=== PATIENT | female | born 1955 | race Caucasian/White ===

== ENCOUNTER 2018-11-21 16:35 | Emergency (ER) | payer OTHER ==
[~2018-11-21] VITALS: Ht 162.6 cm; Wt 59.0 kg
[~2018-11-21 16:35] MED LIST: DEPAKOTE500 MG PO; ENDOCET 10-3251 EACH PO; NORCO 7.5-3251 EACH PO; NORFLEX100 MG PO; PAMELOR50 MG PO
[2018-11-21] MEDS ORDERED: FLEXERIL PO (17:38)
[2018-11-21] MEDS ORDERED: HYDROCODON-ACE1 EA10 PO (17:38)
[2018-11-21] MEDS ORDERED: NEURONTIN600 MG PO (17:38)
[2018-11-21 17:52] VITALS: BP 112/67
== END 2018-11-21 17:53 | disposition home or self-care (01) ==
LOC: ER 16:35
DX: S09.8XXA Other specified injuries of head, initial encounter (principal); R07.89 Other chest pain; I25.10 Atherosclerotic heart disease of native coronary artery without angina pectoris; F31.9 Bipolar disorder, unspecified; M79.7 Fibromyalgia; E10.40 Type 1 diabetes mellitus with diabetic neuropathy, unspecified; W10.9XXA Fall (on) (from) unspecified stairs and steps, initial encounter; Y93.89 Activity, other specified; Y92.89 Other specified places as the place of occurrence of the external cause; Y99.8 Other external cause status

== ENCOUNTER 2018-11-26 15:00 | Emergency (ER) | payer OTHER ==
[~2018-11-26] VITALS: Ht 162.6 cm; Wt 63.5 kg
[~2018-11-26 15:00] MED LIST changes: +FLEXERIL PO; +HYDROCODON-ACE1 EA10 PO; +NEURONTIN600 MG PO
[2018-11-26] MEDS ORDERED: LIDOCAINE PAIN1 EACH TOP (16:37)
[2018-11-26] MEDS ORDERED: HYDROCODONE-AP1 EAC6 PO (16:37)
[2018-11-26 17:16] VITALS: BP 115/71
== END 2018-11-26 17:18 | disposition home or self-care (01) ==
LOC: ER 15:00
DX: S20.212A Contusion of left front wall of thorax, initial encounter (principal); E10.40 Type 1 diabetes mellitus with diabetic neuropathy, unspecified; I25.10 Atherosclerotic heart disease of native coronary artery without angina pectoris; F31.9 Bipolar disorder, unspecified; M79.7 Fibromyalgia; F17.210 Nicotine dependence, cigarettes, uncomplicated; Z88.8 Allergy status to other drugs, medicaments and biological substances; W10.8XXA Fall (on) (from) other stairs and steps, initial encounter; Y93.89 Activity, other specified; Y92.89 Other specified places as the place of occurrence of the external cause; Y99.8 Other external cause status

== ENCOUNTER 2019-02-03 13:33 | Emergency (ER) | payer OTHER ==
[~2019-02-03] VITALS: Ht 162.6 cm; Wt 61.2 kg
[~2019-02-03 13:33] MED LIST changes: +HYDROCODONE-AP1 EAC6 PO; +LIDOCAINE PAIN1 EACH TOP
[2019-02-03] MEDS ORDERED: NORCO 5-325 TA1 EACH PO (15:26)
[2019-02-03 15:49] VITALS: BP 114/54
== END 2019-02-03 15:45 | disposition home or self-care (01) ==
LOC: ER 13:33
DX: S62.512A Displaced fracture of proximal phalanx of left thumb, initial encounter for closed fracture (principal); S62.112A Displaced fracture of triquetrum [cuneiform] bone, left wrist, initial encounter for closed fracture; S09.8XXA Other specified injuries of head, initial encounter; M54.9 Dorsalgia, unspecified; F17.210 Nicotine dependence, cigarettes, uncomplicated; E10.40 Type 1 diabetes mellitus with diabetic neuropathy, unspecified; I25.10 Atherosclerotic heart disease of native coronary artery without angina pectoris; F31.9 Bipolar disorder, unspecified; W10.9XXA Fall (on) (from) unspecified stairs and steps, initial encounter; Y92.89 Other specified places as the place of occurrence of the external cause; Y93.89 Activity, other specified; Y99.8 Other external cause status

== ENCOUNTER 2019-02-12 13:32 | Emergency (ER) | payer OTHER ==
[~2019-02-12] VITALS: Ht 162.6 cm; Wt 61.2 kg
[~2019-02-12 13:32] MED LIST changes: +NORCO 5-325 TA1 EACH PO
[2019-02-12] MEDS ORDERED: PROZAC20 MG PO (13:57)
[2019-02-12] MEDS ORDERED: FLUOXETINE HCL40 MG PO (13:57)
[2019-02-12] MEDS ORDERED: CLONAZEPAM 0.50.5 M1 PO (13:57)
[2019-02-12] MEDS ORDERED: HUMALOG100 UNIT/1 SUBQ (13:58)
[2019-02-12] MEDS ORDERED: AMITRIPTYLINE H25 M2 PO (13:59)
[2019-02-12] MEDS ORDERED: LIPITOR40 MG PO (13:59)
[2019-02-12] MEDS ORDERED: PREDNISONE 20 M20 MG PO (14:17)
[2019-02-12] MEDS ORDERED: NAPROXEN375 MG PO (14:17)
[2019-02-12] MEDS ORDERED: ANTIVERT25 MG PO (14:22)
[2019-02-12 14:54] VITALS: BP 97/65
== END 2019-02-12 14:10 | disposition home or self-care (01) ==
LOC: ER 13:32
DX: M94.0 Chondrocostal junction syndrome [Tietze] (principal); G89.4 Chronic pain syndrome; R42 Dizziness and giddiness; E10.40 Type 1 diabetes mellitus with diabetic neuropathy, unspecified; I25.10 Atherosclerotic heart disease of native coronary artery without angina pectoris; M79.7 Fibromyalgia; M81.0 Age-related osteoporosis without current pathological fracture; F17.210 Nicotine dependence, cigarettes, uncomplicated

== ENCOUNTER 2019-03-21 16:05 | Emergency (ER) | payer OTHER ==
[~2019-03-21] VITALS: Ht 162.6 cm; Wt 63.5 kg
[~2019-03-21 16:05] MED LIST changes: +AMITRIPTYLINE H25 M2 PO; +ANTIVERT25 MG PO; +CLONAZEPAM 0.50.5 M1 PO; +FLUOXETINE HCL40 MG PO; +HUMALOG100 UNIT/1 SUBQ; +LIPITOR40 MG PO; +NAPROXEN375 MG PO; +PREDNISONE 20 M20 MG PO; +PROZAC20 MG PO
[2019-03-21 18:27] VITALS: BP 105/65
== END 2019-03-21 18:36 | disposition home or self-care (01) ==
LOC: ER 16:05
DX: R60.0 Localized edema (principal); Z47.89 Encounter for other orthopedic aftercare; F17.210 Nicotine dependence, cigarettes, uncomplicated; E10.40 Type 1 diabetes mellitus with diabetic neuropathy, unspecified; I25.10 Atherosclerotic heart disease of native coronary artery without angina pectoris; F31.9 Bipolar disorder, unspecified; M79.7 Fibromyalgia

== ENCOUNTER 2019-03-27 15:07 | Inpatient (IN) | payer OTHER ==
[~2019-03-27] VITALS: Ht 162.6 cm; Wt 62.6 kg
--- NOTE | ~2019-03-27 | HC ---
[facility] [place] [address] CONSULTATION Name: JONATHAN MCCULLOUGH Room #: 418-P [facility] IN ..#: [id number] Admission: 03/27/19 ������������������ Attend Phys: Cesar Cornejo MD Discharge: ������������������ Date of : 57 Report #: [id number] THIS REPORT FOR: //name// CC: Cesar Cornejo DATE OF SERVICE: 03/28/2019 HISTORY OF PRESENT ILLNESS: The patient is a 63-year-old white female who has had 3 falls since November. She had a fall in November sustaining left-sided rib fractures. She then had another fall sustaining a left thumb proximal phalanx fracture. I do not have the data on this, but she was seen in the Emergency Room on 03/21/2019 after having a thumb spica cast changed to a splint. She continues to have a splint in place at this time. She will use a cane at times, although not typically out in the community. She was out at a grocery store when she apparently had another fall. At this time, she fell on her right side and sustained 3 rib fractures on the right. She has premorbid COPD and has new onset hypoxia and is now O2 dependent on 4 liters. She has considerable pain with the rib fractures. She has multifactorial gait instability and we are seeing her in Rehabilitation Medicine consultation. PAST MEDICAL HISTORY: Includes peripheral neuropathy, diabetes mellitus type 1, coronary artery disease, bipolar disorder, fibromyalgia, depression, anxiety, chronic pain syndrome. MEDICATIONS: Please see the full medication listing. This includes vitamins, herbals, and supplements per report. HABITS: A 13-urxn-dzjg tobacco history and is a current smoker. SOCIAL HISTORY: Lives with parents. House, split level. Her mother continues to work. The patient needs to be able to go up and down stairs. REVIEW OF SYSTEMS: She has considerable right rib pain, especially with movement as expected. Some discomfort with her breathing. She still has the left thumb and wrist discomfort and has the splint in place. She has the chronic back pain and has some lower extremity tingling and pain, which is premorbid. No current abdominal discomfort per se. PHYSICAL EXAMINATION: GENERAL: A 63-year-old white female, somewhat anxious. VITAL SIGNS: Temperature 36.9, pulse 87, respirations 19, blood pressure 103/59. She is currently on nasal prong O2. HEENT: Facies appeared symmetric. NEUROLOGIC: She is a reasonable historian. She favors movement of that right side with right-sided rib fractures. I could not detect any focal weakness of the right upper extremity. Left upper extremity, she has the thumb spica splint [address] [address] CONSULTATION Name: JONATHAN MCCULLOUGH Dorene Room #: 418-P [facility] IN M.R.#: [id number] Admission: 03/27/19 ������������������ Attend Phys: Cesar Cornejo MD Discharge: ������������������ Date of : 56 Report #: [id number] She can wiggle her fingers. Proximal movement is somewhat limited as she relates back to her ribs. In her lower extremities, there is no focal calf swelling. She can move the left leg a little bit better than the right leg, but movement of that right leg will cause some pain in her ribs. Strength is probably at least a grade 3+/5, but it was again difficult to monogram technician. Tone appeared to be intact. ASSESSMENT: A 63-year-old white female with the following problem list: 1. Multifactorial gait instability with multiple falls. 2. Right-sided rib fractures with new-onset hypoxia. 3. Left thumb proximal phalanx fracture, which is in a thumb spica splint. 4. Recent fall in November sustaining left rib fractures. 5. Premorbid chronic obstructive pulmonary disease. 6. Peripheral neuropathy. 7. Diabetes mellitus. 8. Bipolar disorder. 9. Coronary artery disease. 10. Fibromyalgia. 11. Chronic pain syndrome. 12. Chronic low back pain. 13. Depression and anxiety. 14. Tobacco abuse. PLAN: PT and OT are to evaluate. I certainly agree with the attending, Dr. Cornejo that with the multiple falls pursuing inpatient rehabilitation would be prudent and appropriate. We will see how she does in therapies and insurance precertification issues to be checked in too. ��������������������������������������������� ���������������������������������������� By: ��������������������������������������������� [id number] Cesar Hartmann MD /[facility]
[2019-03-27 15:15] VITALS: BP 121/75
[2019-03-27 17:00] LABS: ABSOLUTE NEUTROPHILS 3.3 thou/uL (1.4-8.2); EOSINOPHILS 2.7 % (0.0-3.0); HEMATOCRIT 41.6 % (37.0-47.0); HEMOGLOBIN 13.9 gm/dL (12.0-15.0); LYMPHOCYTES 35.6 % (24.0-44.0); MCH 29.7 pg (26.0-34.0); MCHC 33.3 g/dL (28.0-37.0); MCV 89.2 fL (80.0-100.0); MONOCYTES 7.5 % (1.0-8.0); PLATELET COUNT 311 thou/uL (150-400); POLYS 53.2 % (36.0-66.0); RBC 4.66 mil/uL (4.20-5.00); RDW 13.8 % (10.5-14.5); WBC 6.2 thou/uL (4.0-11.0)
[2019-03-27 17:10] LABS: CALCIUM 10.1 mg/dL (8.5-10.1); POTASSIUM 5.1 mmol/L (3.5-5.1)
[2019-03-27] MEDS ORDERED: LANTUS100 UNIT/M (17:14)
[2019-03-27 17:17] LABS: ALBUMIN 3.5 g/dL (3.4-5.0); TOTAL BILIRUBIN 0.2 mg/dL (<0.1-1.0); TOTAL PROTEIN 7.2 g/dL (6.4-8.2)
--- NOTE | 2019-03-27 19:51 | NUR ---
DISCUSSION WITH PATIENT REGARDING PLAN OF CARE AND PAIN CONTROL. PATIENT STATES UNDERSTANDING
[2019-03-27 20:05] VITALS: BP 99/55
--- NOTE | 2019-03-27 20:25 | NUR ---
FIRST ATTEMPT AT REPORT UNSUCCESSFUL
--- NOTE | 2019-03-27 20:43 | NUR ---
INPATIENT TO REPORT ORAL ON 4EAST
[2019-03-27 20:45] VITALS: BP 96/49
[2019-03-28 03:26] VITALS: BP 137/86
[2019-03-28 07:14] VITALS: BP 103/59
--- NOTE | 2019-03-28 08:26 | NUR ---
PT ARRIVED TO UNIT APPROX 2100, ADMISSION AND ASSESSMENT COMPLETED, CONSENTS SIGNED BY PT. HOME MEDICATIONS COLLECTED FROM PT, COUNTED ALL CONTROLLED SUBSTANCES WITH SECOND RN IN FRONT OF THE PT, AND PLACED IN A SECURE PHARMACY BAG AND SENT TO PHARMACY FOR STORAGE. PT VALUABLES PLACED IN SECURITY ENVELOPE AND SENT TO [facility] PER PUBLIC SAFETY; EDUCATED PT ABOUT KEEPING ANY JEWELRY ON HER AND THAT IT WOULD BE SAFER IN THE VAULT, BUT SHE STILL ELECTED TO WEAR TWO RINGS, A WATCH, TWO BRACELTS, AND HER EARRINGS; A 3RD RING AND A NECKLACE WERE PLACED INTO A SECURITY POUCH. REVIEWED HOME MEDS WITH PT, WHO WAS UNSURE OF SOME HER DOSES AND DID NOT HAVE COPIES OF PRESCRIPTIONS WITH HER; SPOKE WITH DR. Christophe KELLY AND OBTAINED ORDERS TO RESUME MEDS, START IV FLUIDS, AND ACCUCHECKS. PT ON 2L NC O2 ON ARRIVAL, AM VS SHOWED O2 SAT HAD DROPPED TO 85% R/T SHALLOW/PAINFUL BREATHING, INCREASED O2 TO 4L AND SAT UP TO 94%. PT C/O SEVERE PAIN IN RIGHT RIBS, PARTLY CONTROLLED BY PRN PAIN MEDS. PT HAS EXISTING FRACTURE TO LEFT THUMB WITH WRIST AND THUMB WRAPPED IN SOFT CAST. NO OTHER CONCERNS, SHIFT REPORT GIVEN AT 0700.
--- NOTE | 2019-03-28 11:05 | NUR ---
PT GIVEN ANXIETY AND PRN PAIN MED. STATES RIBS HURT WANTED TO HAVE CAST PUT ON. EXPLAINED THAT THAT WOULD NOT BE DONE. PT GETTING RESP TX'S.
--- NOTE | 2019-03-28 13:19 | H ---
[facility] [place] [address] HISTORY AND PHYSICAL Name: JONATHAN MCCULLOUGH Room #: 418-P [facility] IN ..#: [id number] Admission: 03/27/19 ������������������ Attend Phys: Cesar Cornejo MD Discharge: ������������������ Date of : 57 Report #: [id number] THIS REPORT FOR: //name// CC: Cesar Cornejo DATE OF SERVICE: 03/27/2019 CHIEF COMPLAINT: Right rib pain. HISTORY OF PRESENT ILLNESS: The patient is a 63-year-old female who was admitted to the Emergency Room after a fall where she suffered right rib fractures. She was in a local grocery store when she was reaching to grab an item off a higher shelf when she was distracted by another desolderer and turned to her right. This caused her to lose her balance and she fell to the ground. She felt pain in her right ribs and was having trouble breathing and was weak all over. She was brought to the Emergency Room where x-ray and CT confirmed 3 rib fractures on the right. PAST MEDICAL HISTORY: Diabetes type 1, peripheral neuropathy, coronary artery disease, bipolar, seizures, fibromyalgia, depression, anxiety, chronic pain syndrome. PAST SURGICAL HISTORY: Unknown. FAMILY HISTORY: Noncontributory. SOCIAL HISTORY: She lives with her parents. Denies chronic alcohol use. Admits to a 24-fzfv-puoe history of smoking and is a current smoker. MEDICATIONS: Gabapentin, clonazepam as needed, fluoxetine, Humalog with meals, Lipitor, amitriptyline, hydrocodone, Lantus at night. REVIEW OF SYSTEMS: She complains of shortness of breath, pain in her right ribs, stinging type pain in the left leg. Otherwise, no headache, productive cough, nausea, vomiting, diarrhea, constipation or dysuria. OBJECTIVE: VITAL SIGNS: Temperature 36.9, pulse 87, respirations 19, blood pressure 103/59, O2 sat 90% on 2 liters. GENERAL: She is awake and alert, in no distress. HEAD AND NECK: Unremarkable. LUNGS: Diminished breath sounds. No wheezing. Equal bilaterally. HEART: Regular. ABDOMEN: Soft, normoactive bowel sounds. EXTREMITIES: No edema. NEUROLOGIC: Cranial nerves intact. Speech is fluent. She is alert and [facility] [address] [address] HISTORY AND PHYSICAL Name: JONATHAN MCCULLOUGH Room #: 418-P [facility] IN ..#: [id number] Admission: 03/27/19 ������������������ Attend Phys: Cesar Cornejo MD Discharge: ������������������ Date of : 56 Report #: [id number] oriented. She has decreased fine touch sensation in the feet. Global strength is about 3/5 throughout. IMAGING: CT of the chest revealed nondisplaced fractures of the seventh, eighth and ninth posterior lateral right ribs. There is no pneumothorax. ASSESSMENT: 1. Acute multiple right rib fractures 7, 8 and 9. 2. Neuropathy due to diabetes. 3. Diabetes type 1. 4. Gait disturbance. 5. Recurrent falls. 6. Fibromyalgia. 7. Chronic pain syndrome. 8. New onset hypoxia due to #1. 9. Chronic obstructive pulmonary disease with a history of tobacco use. PLAN: She was admitted due to new hypoxia related to the underlying rib injury. She required supplemental oxygen continuously so far. We will work on incentive spirometry, increase activity with therapies and wean off oxygen as tolerated. I do think we need to pursue inpatient rehabilitation with her. This is her third fall with fracture since November including left rib fractures and a left wrist fracture, for which she is still undergoing treatment, Lovenox for DVT prophylaxis. ��������������������������������������������� <ELECTRONICALLY SIGNED> ���������������������������������������� By: Cesar Cornejo MD ��������������������������������������������� 03/28/19 1319 [id number] Cesar Cornejo MD /nt
[2019-03-28 16:57] VITALS: BP 142/50
--- NOTE | 2019-03-28 20:22 | NUR ---
PT'S BLOOD SUGAR WAS 28 AT LUNCH. PT ALERT XS 4. GIVEN FOOD AND JUICE AND ICE CREAM BLOOD SUGAR UP TO [address] TERRY HERE AT FACILITY WAS INFORMED OF BLOOD SUGAR. DOCTOR MADE CHANGES TO MEDS AND INSULIN WANTS PATIENT UP IN BEDSIDE CHAIR AND THERAPY TO WORK WITH PATIENT.
[2019-03-28 21:29] VITALS: BP 136/77
--- NOTE | 2019-03-29 05:52 | NUR ---
ASSUMED CARE AT 1900, ASSESSMENT COMPLETED. EDUCATED PT ABOUT PAIN MEDICATIONS AND PAIN CONTROL, INCLUDING ALTERNATE METHODS SUCH DISTRACTION, HEAT, AND BREATHING EXERCISES. ENCOURAGED USE OF I.S. TO PREVENT PNEUMONIA. PT'S PAIN LEVEL HAS IMPROVED SLIGHTLY OVERNIGHT, ABLE TO GET IN/OUT OF BED MORE EASILY, AND NOT GET WINDED/ANXIOUS WITH ACTIVITY. PT HAS BEEN UP TO BSC MULTIPLE TIMES. DENIES NAUSEA. NO OTHER CONCERNS, WILL CONTINUE TO MONITOR.
[2019-03-29 07:32] VITALS: BP 120/61
--- NOTE | 2019-03-29 10:10 | NUR ---
INITIAL ASSESSMENT: Received consult for discharge planning. Pt with hx of frequent falls. Pt with new acute ride sided rib fractures. Consult for [facility] to evaluate pt for inpt acute rehab. FRANSICO met with pt at bedside. Introduced role of FRANSICO. Pt is alert/orientated x 4. Pt reports she lives at home with her parents. Prior to admission pt was independent with ADLs. Pt has a quad cane. No hx of HH services or SNF/Rehab placement. Pt is agreeable with going to inpt acute rehab if needed: [facility] or [facility]. SW offered [facility] as a back up plan if needed. Will need insurance authorization. Awaiting input from [facility] at this time. FRANSICO is following to assist as needed with discharge planning.
--- NOTE | 2019-03-29 15:14 | NUR ---
ASSUMED CARE AT 0700, SHIFT ASSESMENT DONE, MEDS GIVEN, VSS. REPORTED RIB PAIN, PRN PAIN MEDS GIVEN. REMAINS ON 4L NC. WORKED WITH PHTSICAL THERAPHY, WALKED OUT IN THE HALLWAY, UP WITH STANDBY. WILL CONITNUE TO ASSESS AND ASSIST WITH ADLs NEEDED.
[2019-03-29 15:58] VITALS: BP 100/59
--- NOTE | 2019-03-29 16:09 | NUR ---
funeral planner sent initial referral to [facility], asking if they can take patient's insurance. SW here already contacted [facility] to let them know to expect referral.
[2019-03-29 20:55] VITALS: BP 125/67
[2019-03-30 01:04] VITALS: BP 136/72
[2019-03-30 05:57] LABS: HEMOGLOBIN 12.7 gm/dL (12.0-15.0); MCH 29.4 pg (26.0-34.0); MCHC 32.6 g/dL (28.0-37.0); MCV 90.2 fL (80.0-100.0); RBC 4.33 mil/uL (4.20-5.00); RDW 14.1 % (10.5-14.5); WBC 10.1 thou/uL (4.0-11.0)
[2019-03-30 06:05] LABS: CALCIUM 9.9 mg/dL (8.5-10.1); CREATININE 0.8 mg/dL (0.6-1.0); POTASSIUM 4.2 mmol/L (3.5-5.1)
--- NOTE | 2019-03-30 06:16 | NUR ---
ASSUMED CARE AT 1900, ASSESSMENT COMPLETED. PT C/O RIGHT RIB PAIN, BETTER CONTROLLED OVERNIGHT USING OXYCODONE. PT HAS CRACKLES BILATERALLY IN LUNGS, ENCOURAGING USE OF I.S. AND DEEP BREATHING EXERCISES, MAINTAINING O2 SATS ABOVE 90% ON 4L O2. DENIES NAUSEA. GIVEN IV LASIX AT 1999, LARGE URINE OUTPUT, UNABLE TO ACCURATELY MEASURE D/T PT PLACING LARGE AMOUNTS OF TOILET PAPER IN BSC. NO OTHER CONCERNS, WILL CONTINUE TO MONITOR.
[2019-03-30 06:26] VITALS: BP 116/67
[2019-03-30 07:53] VITALS: BP 109/64
--- NOTE | 2019-03-30 08:26 | NUR ---
PATIENT SEEN BY DR. CASTILLO FOR ACUTE REHAB CONSULT. PATIENT MAY BE A CANDIDATE FOR ACUTE REHAB, BUT PATIENT HAS [facility] DUAL COMPL AND 5N IS NOT AN OPTION FOR THIS INSURANCE. MAT MAKING MACHINE TENDER INFORMED. THANK YOU FOR THIS REFERRAL.
[2019-03-30 15:48] VITALS: BP 93/51
--- NOTE | 2019-03-30 15:50 | NUR ---
FRANSICO reviewed chart and spoke with nursing and attending physician. Pt is progressing towards goals for discharge. Clinical updates faxed to [facility] for review. FRANSICO met with pt at bedside to notify of [facility]'s acceptance pending insurance authorization. Discharge anticipated for Tuesday pending insurance auth. Pt verbalized understanding and is in agreement with plan. [facility] liaison will be onsite over the weekend to meet with pt and family. Choice of Vendor Form signed and placed on pt's chart. No weekend discharge planned. FRANSICO is following to assist as needed with discharge planning.
--- NOTE | 2019-03-30 18:45 | NUR ---
PT ASSESSED AT START OF SHIFT. C/O RT RIB PAIN AND MEDICATED REGULARLY WITH SOME RELIEF. PT COUGHING BETTER. DOING I/S AND FLUTTER VALVE. STILL ON O2 AT 5LNC. DIURESED W/ IV LASIX THIS AFTERNOON. EATING AND DRINKING WELL. LT ARM SPLINT IN PLACE. GOING TO [facility] ON DISCHARGE.
[2019-03-30 19:23] VITALS: BP 111/65
[2019-03-31 05:05] VITALS: BP 107/57
--- NOTE | 2019-03-31 06:24 | NUR ---
PATIENT ALERT AND ORIENTED X4. C/O PAIN IN RIBS AND IN BACK. ACCUCHECK WAS 324. DOES I/S. UP TO BATH ROOM. SLEPT OFF AND ON DURING NIGHT.
[2019-03-31 07:54] VITALS: BP 95/59
[2019-03-31 17:17] VITALS: BP 99/55
[2019-03-31 20:12] VITALS: BP 98/51
--- NOTE | 2019-04-01 05:35 | NUR ---
PATIENT ALERT AND ORIENTED X4. UP TO BATHROOM WITH SBA. C/O PAIN, MED GIVEN. ACCUCHECK WAS 97. SLEPT LITTLE THIS SHIFT.
[2019-04-01 05:46] VITALS: BP 113/61
[2019-04-01 07:45] VITALS: BP 119/66
[2019-04-01 19:22] VITALS: BP 99/52
[2019-04-02 03:30] VITALS: BP 112/58
--- NOTE | 2019-04-02 04:07 | NUR ---
ASSUMED CARE OF PT @1900 ASSESSED PT @ START OF SHIFT. PT A&OX4 WITH C/O RIGHT RIB PAIN. PO PAIN MEDS GIVEN FOR MANAGEMENT. ABX INFUSED AND EVENING MEDS GIVEN. PT TOOK EVENING BATH. POC DONE AND WILL CONTINUE TO MONITOR TILL EOS
[2019-04-02 07:55] VITALS: BP 112/78
--- NOTE | 2019-04-02 12:02 | NUR ---
PT UP WALKING THE HALLS WITH THERAPY NO PAIN OR RESP DISTRESS. GIVEN PRN COUGH MED AND PRN PAIN MED EARLIER.
--- NOTE | 2019-04-02 12:33 | NUR ---
SW reviewed chart and spoke with nursing and attending physician. Pt is progressing towards goals for discharge. mission planner to fax updated clinical and therapy notes for review to [facility]. Awaiting insurance authorization at this time. FRANSICO is following to assist as needed with discharge planning.
[2019-04-02] MEDS ORDERED: IPRAT-ALBUT 0.5-3 ML INH (13:04)
[2019-04-02] MEDS ORDERED: NICOTINE TRANSD14 M1 TRANSDERM (13:05)
[2019-04-02] MEDS ORDERED: ENOXAPARIN40 MG/0.1 SUBQ (13:05)
[2019-04-02] MEDS ORDERED: PERCOCET PO (13:05)
[2019-04-02] MEDS ORDERED: BENZONATATE100 MG PO (13:06)
[2019-04-02] MEDS ORDERED: NEURONTIN600 MG PO (13:06)
[2019-04-02] MEDS ORDERED: LANTUS100 UNIT/M SUBQ (13:06)
[2019-04-02] MEDS ORDERED: CEFDINIR300 MG PO (13:07)
[2019-04-02] MEDS ORDERED: NOVOLOG100 UNIT/1 SUBQ (13:07)
[2019-04-02 16:23] VITALS: BP 105/55
--- NOTE | 2019-04-02 19:24 | NUR ---
PT UP IN BEDSIDE CHAIR WATCHING TV. WAS GIVEN PRN MIRALAX EARLIER NO RESULTS OF THIS TIME. PRN COUGH MED AND PRN PAIN MED GIVEN EARLIER. PT SBA ASSIST. STEADY GAIT.
[2019-04-02 19:25] VITALS: BP 138/108
[2019-04-03 04:55] VITALS: BP 114/69
--- NOTE | 2019-04-03 05:18 | NUR ---
A/O, calm and cooperative. vss, afebrile. complain chest pain with cough, asks for PRN pain medication on time, will pass it on to the day nurse.
[2019-04-03 07:15] VITALS: BP 127/74
--- NOTE | 2019-04-03 08:36 | NUR ---
ADM OXYCODONE 5MG 2 TABS FOR PAIN TO LUNGS. PT ALSO STATED NO BM FOR 7 DAYS. ADM MIRALAX 17GM IN APPLE JUICE. PT ALSO RECIEVED TESSELONE PEARLS 200MG FOR COUGH.
[2019-04-03] MEDS ORDERED: PERCOCET 10-321 EACH PO (09:26)
[2019-04-03] MEDS ORDERED: NOVOLOG100 UNIT/1 SUBQ (09:27)
--- NOTE | 2019-04-03 10:44 | NUR ---
FRANSICO reviewed chart. Pt is medically stable for discharge to post-acute care. FRANSICO notified that [facility] is able to accept pt and has submitted for insurance authorization. FRANSICO spoke with Paola in admissions at [facility], who states they are able to accept pt and have submitted for insurance authorization. FRANSICO received call from HIRAL Zhu with [facility], requesting update with pt's discharge plan. FRANSICO returned call to Audra ([phone]) to provide update and notify that [facility] can accept pt from a clinical standpoint. Per Audra, [facility] was provided with authorization this morning around 1045. FRANSICO updated attending physician. Chart copy ordered. FRANSICO is following to finalize discharge.
--- NOTE | 2019-04-03 12:44 | NUR ---
ADM OXYCODONE 5MG 2 TABS PO FOR PAIN AFTER COUGHING, AND ADM TESSELON PEARLS 200MG PO.
--- NOTE | 2019-04-03 15:27 | NUR ---
PT LEFT VIA W/C VAN TO CT. GAVE REPORT TO PENG BLACKMAN AT [facility]. PT ABLE TO TRANSFER FROM BED TO W/C. PT VERBALY UNDERSTOOD D/C ORDERS. PT LEFT WITH OXYGEN ON 4L NC.
== END 2019-04-03 15:27 | DRG 183 ==
LOC: ER 15:07 → EROBS 16:59 → 4E 16:59
PROVIDERS: Emergency Medicine; ADMIT Internal Medicine Geriatric Medicine
DX: S22.41XA Multiple fractures of ribs, right side, initial encounter for closed fracture (principal); J18.9 Pneumonia, unspecified organism; J44.0 Chronic obstructive pulmonary disease with (acute) lower respiratory infection; I25.10 Atherosclerotic heart disease of native coronary artery without angina pectoris; F31.9 Bipolar disorder, unspecified; M79.7 Fibromyalgia; F17.210 Nicotine dependence, cigarettes, uncomplicated; E10.42 Type 1 diabetes mellitus with diabetic polyneuropathy; F41.9 Anxiety disorder, unspecified; W18.39XA Other fall on same level, initial encounter; R09.02 Hypoxemia; G89.4 Chronic pain syndrome; Z79.899 Other long term (current) drug therapy; Z79.4 Long term (current) use of insulin; Y93.89 Activity, other specified; Y92.89 Other specified places as the place of occurrence of the external cause; Y99.8 Other external cause status
CPT/HCPCS: 10084

== ENCOUNTER → 2019-09-27 | Outpatient (CLI) | payer OTHER ==
[~2019-09-27] MED LIST changes: +BENZONATATE100 MG PO; +CEFDINIR300 MG PO; +ENOXAPARIN40 MG/0.1 SUBQ; +IPRAT-ALBUT 0.5-3 ML INH; +LANTUS100 UNIT/M; +LANTUS100 UNIT/M SUBQ; +NICOTINE TRANSD14 M1 TRANSDERM; +NOVOLOG100 UNIT/1 SUBQ; +PERCOCET 10-321 EACH PO; +PERCOCET PO
== END ==
LOC: RAD 12:29 → NUC 12:29
DX: Z12.31 Encounter for screening mammogram for malignant neoplasm of breast (principal); M81.0 Age-related osteoporosis without current pathological fracture

== ENCOUNTER 2019-10-08 00:12 | Emergency (ER) | payer OTHER ==
[~2019-10-08] VITALS: Ht 157.5 cm; Wt 54.4 kg
[2019-10-08] MEDS ORDERED: NAPROXEN375 MG PO (01:39)
[2019-10-08] MEDS ORDERED: TYLENOL WITH CO1 TA1 PO (01:39)
[2019-10-08 03:01] VITALS: BP 145/54
== END 2019-10-08 03:01 | disposition home or self-care (01) ==
LOC: ER 00:12
DX: S42.291A Other displaced fracture of upper end of right humerus, initial encounter for closed fracture (principal); F10.129 Alcohol abuse with intoxication, unspecified; I25.10 Atherosclerotic heart disease of native coronary artery without angina pectoris; E10.40 Type 1 diabetes mellitus with diabetic neuropathy, unspecified; M79.7 Fibromyalgia; F31.9 Bipolar disorder, unspecified; F17.210 Nicotine dependence, cigarettes, uncomplicated; Z90.710 Acquired absence of both cervix and uterus; Z91.81 History of falling; W18.39XA Other fall on same level, initial encounter; Y93.89 Activity, other specified; Y92.89 Other specified places as the place of occurrence of the external cause; Y99.8 Other external cause status; Y90.9 Presence of alcohol in blood, level not specified

== ENCOUNTER 2019-10-09 18:06 | Emergency (ER) | payer OTHER ==
[~2019-10-09] VITALS: Ht 157.5 cm; Wt 54.4 kg
[~2019-10-09 18:06] MED LIST changes: +TYLENOL WITH CO1 TA1 PO
[2019-10-09 19:17] VITALS: BP 118/67
== END 2019-10-09 19:18 | disposition home or self-care (01) ==
LOC: ER 18:06
DX: S42.201D Unspecified fracture of upper end of right humerus, subsequent encounter for fracture with routine healing (principal); S50.01XD Contusion of right elbow, subsequent encounter; F31.9 Bipolar disorder, unspecified; M79.7 Fibromyalgia; E10.40 Type 1 diabetes mellitus with diabetic neuropathy, unspecified; Z90.710 Acquired absence of both cervix and uterus; X58.XXXD Exposure to other specified factors, subsequent encounter

== ENCOUNTER 2019-10-12 21:20 | Inpatient (IN) | payer OTHER ==
[~2019-10-12] VITALS: Ht 157.5 cm; Wt 50.0 kg
[2019-10-12 21:21] VITALS: BP 150/75
[2019-10-12 22:03] LABS: ABSOLUTE NEUTROPHILS 7.2 thou/uL (1.4-8.2); EOSINOPHILS 0.3 % (0.0-3.0); HEMATOCRIT 36.7 % (37.0-47.0); HEMOGLOBIN 11.9 gm/dL (12.0-15.0); LYMPHOCYTES 13.7 % (24.0-44.0); MCH 30.1 pg (26.0-34.0); MCHC 32.4 g/dL (28.0-37.0); MCV 92.9 fL (80.0-100.0); MONOCYTES 6.8 % (1.0-8.0); PLATELET COUNT 383 thou/uL (150-400); POLYS 78.2 % (36.0-66.0); RBC 3.95 mil/uL (4.20-5.00); RDW 14.1 % (10.5-14.5); WBC 9.1 thou/uL (4.0-11.0)
[2019-10-12 22:06] LABS: CALCIUM 9.7 mg/dL (8.5-10.1); CREATININE 0.5 mg/dL (0.6-1.0); MAGNESIUM 1.9 mg/dL (1.8-2.4)
[2019-10-12 22:59] LABS: BE(vivo) -11.7 mmol/L (-2 to +3); HCO3 13.2 mmol/L (22.0-26.0); PCO2 27.6 mmHg (35.0-45.0); PO2 73.4 mmHg (80.0-100.0); sO2 93.6 % (92.0-98.0)
[2019-10-12 22:59] LABS: URINE BILIRUBIN NEGATIVE (Negative); URINE BLOOD TRACE (Negative); URINE CLARITY CLEAR; URINE COLOR YELLOW; URINE GLUCOSE-RANDOM* 2+ (Negative); URINE KETONES 3+ (Negative); URINE LEUKOCYTES-REFLEX NEGATIVE (Negative); URINE NITRITE-REFLEX NEGATIVE (Negative); URINE PROTEIN (DIPSTICK) NEGATIVE (Negative); URINE SPECIFIC GRAVITY >= 1.030 (1.005-1.035); URINE UROBILINOGEN 0.2 E.U./dl (0.2-1.0)
[2019-10-12 23:00] LABS: pH 7.297 (7.360-7.450)
[2019-10-12 23:24] LABS: CALCIUM 9.4 mg/dL (8.5-10.1); CREATININE 0.8 mg/dL (0.6-1.0)
[2019-10-12 23:28] LABS: ALBUMIN 3.4 g/dL (3.4-5.0); MAGNESIUM 1.8 mg/dL (1.8-2.4); PHOSPHORUS 2.2 mg/dL (2.5-4.9)
[2019-10-12 23:30] LABS: POTASSIUM 4.4 mmol/L (3.5-5.1)
[2019-10-12 23:48] VITALS: BP 133/58
[2019-10-13] VITALS (36 sets, daily range): BP systolic 94–129; BP diastolic 50–64
--- NOTE | 2019-10-13 01:42 | NUR ---
PT ARRIVED TO ICU AT 2335 ACCOMPANIED BY ISIDRO RN. PT ALERT AND ORIENTED X4. PT DOES VERBALIZE PAIN ON RIGHT UPPER EXTREMETY R/T A PREVIOUS FALL. DKA PROTOCOL ORDERS IN PLACE. PER ED PHYSICIAN NOTE DR TERRY WAS NOTIFIED. PT HEMODYNAMICALLY STABLE. PT STARTED ON INSULIN GTT WHILE IN ICU AND TITRATING PER ORDERS. MEDICATION IN PATIENT'S PURSE SENT TO PHARMACY. WILL CONTINUE TO MONITOR.
[2019-10-13 06:24] LABS: ALBUMIN 2.6 g/dL (3.4-5.0); CALCIUM 8.6 mg/dL (8.5-10.1); CREATININE 0.7 mg/dL (0.6-1.0); MAGNESIUM 1.7 mg/dL (1.8-2.4); POTASSIUM 3.9 mmol/L (3.5-5.1); TOTAL BILIRUBIN 0.4 mg/dL (<0.1-1.0)
[2019-10-13 10:25] LABS: ALBUMIN 2.8 g/dL (3.4-5.0); CREATININE 0.7 mg/dL (0.6-1.0); POTASSIUM 3.9 mmol/L (3.5-5.1); TOTAL BILIRUBIN 0.4 mg/dL (<0.1-1.0); TOTAL PROTEIN 6.2 g/dL (6.4-8.2)
[2019-10-13 14:30] LABS: ALBUMIN 2.6 g/dL (3.4-5.0); CALCIUM 8.6 mg/dL (8.5-10.1); CREATININE 0.7 mg/dL (0.6-1.0); MAGNESIUM 1.7 mg/dL (1.8-2.4); PHOSPHORUS 1.2 mg/dL (2.5-4.9)
[2019-10-13 17:40] LABS: CALCIUM 8.9 mg/dL (8.5-10.1); CREATININE 0.6 mg/dL (0.6-1.0); POTASSIUM 3.6 mmol/L (3.5-5.1)
--- NOTE | 2019-10-13 19:21 | NUR ---
PT ASSESSMENTS DOCUMENTED. REMAINED ON ISULIN GTT AND FLUIDS PER DKA PROTOCOL THIS MORNING AND AFTERNOON. ANION GAP CLOSED. UPDATED DR. TERRY THIS EVENING. ORDERS TO STOP INSULIN GTT AND FLUIDS. START ON MOD DOSE SS INSULIN AND LANTUS AT HS. PRN PAIN MEDICATION GIVEN PER NOV. DIFFICULTY MANAGING PAIN. DR. TERRY AWARE. INCREASED DOSE OF PAIN MEDICATION. PT PROGRESSING.
[2019-10-13 22:54] LABS: CALCIUM 9.4 mg/dL (8.5-10.1); CREATININE 0.5 mg/dL (0.6-1.0); POTASSIUM 4.5 mmol/L (3.5-5.1)
[2019-10-13 22:58] LABS: ALBUMIN 2.7 g/dL (3.4-5.0); PHOSPHORUS 1.5 mg/dL (2.5-4.9)
[2019-10-14] VITALS (9 sets, daily range): BP systolic 111–131; BP diastolic 57–73
--- NOTE | 2019-10-14 04:40 | NUR ---
TOOK OVER CARE OF PATIENT AT 0100 FROM HIRAL BUCIO. ASSESSMENT CHARTED, MEDS GIVEN CHARTED. PATIENT WEARING IMMOBILIZER TO RIGHT UPPER EXTEMITY. C/O PAIN UNCONTROLLED BY CURRENT LEVEL OF PAIN THERAPY. COLD THERAPY ALSO IN USE ON AND OFF DURING SHIFT. PATIENT UP WITH STANDBY ASSIST TO COMMODE. LUNGS CLR/DIM ON 2 LITERS NASAL CANNULA. PATIENT ACHS ON MODERATE SSI. VSS. FALL PRECAUTIONS IN PLACE. PLAN OF CARE IS TO CONTINUE PAIN MANAGEMENT, INSULIN THERAPY, AND INVESTIGATE FX RIGHT HUMERUS NOW THAT PATIENT IS STABLE.
[2019-10-14 06:14] LABS: BASOPHILS 0.9 % (0.0-2.0); EOSINOPHILS 2.6 % (0.0-3.0); HEMATOCRIT 34.7 % (37.0-47.0); HEMOGLOBIN 11.4 gm/dL (12.0-15.0); LYMPHOCYTES 34.9 % (24.0-44.0); MCH 30.2 pg (26.0-34.0); MCHC 32.8 g/dL (28.0-37.0); MCV 91.9 fL (80.0-100.0); MONOCYTES 9.8 % (1.0-8.0); PLATELET COUNT 389 thou/uL (150-400); POLYS 51.8 % (36.0-66.0); RBC 3.77 mil/uL (4.20-5.00); RDW 14.2 % (10.5-14.5); WBC 7.8 thou/uL (4.0-11.0)
[2019-10-14 06:25] LABS: CALCIUM 9.1 mg/dL (8.5-10.1); CREATININE 0.4 mg/dL (0.6-1.0); POTASSIUM 3.8 mmol/L (3.5-5.1)
[2019-10-14 06:30] LABS: ALBUMIN 2.5 g/dL (3.4-5.0); TOTAL BILIRUBIN 0.4 mg/dL (<0.1-1.0); TOTAL PROTEIN 5.9 g/dL (6.4-8.2)
--- NOTE | 2019-10-14 10:08 | H ---
[facility] [place] [address] HISTORY AND PHYSICAL Name: JONATHAN MCCULLOUGH Room #: 238-P [facility] IN M.R.#: [id number] Admission: 10/12/19 Attend Phys: Cesar Cornejo MD Discharge: Date of : 57 Report #: [id number] THIS REPORT FOR: //name// CC: Cesar Cornejo DATE OF SERVICE: 10/13/2019 CHIEF COMPLAINT: Nausea and vomiting. HISTORY OF PRESENT ILLNESS: The patient is a 63-year-old female who came to the Emergency Room with complaints of nausea and vomiting. Over the last 2-3 days, she has been out of her insulin and has not been taking it regularly. She had a fall last weekend and suffered a right proximal humerus fracture. She has had difficulty managing at home and we have ordered home health; however, she has not been taking her insulin. In the last day or two, she developed a subjective fever and nausea and vomiting. She presented to the Emergency Room last night and was admitted with a diagnosis of DKA. PAST MEDICAL HISTORY: Diabetes type 1, neuropathy, coronary artery disease, bipolar disorder, pseudoseizures, fibromyalgia. She has had rib fractures, left wrist fracture, osteoporosis and the recent right humerus fracture and COPD. PAST SURGICAL HISTORY: She has had a hysterectomy. FAMILY HISTORY: Noncontributory. SOCIAL HISTORY: She lives with her parents. Positive tobacco and alcohol use, 77-[id number]-[id number]. ALLERGIES: None. MEDICATIONS: Elavil, Lipitor, Prozac, fluoxetine, Lantus at night, NovoLog with meals. REVIEW OF SYSTEMS: She complains of right arm pain, otherwise no headache, chest pain, shortness of breath. Nausea and vomiting has resolved. No abdominal pain. OBJECTIVE: VITAL SIGNS: Temperature 36.7, pulse 88, respirations 21, blood pressure 124/60, O2 sat 94% on room air. GENERAL: She is awake and alert, in no distress. HEAD AND NECK: Unremarkable. LUNGS: Clear. HEART: Regular. ABDOMEN: Soft, normoactive bowel sounds. [facility] [address] [place] [address] HISTORY AND PHYSICAL Name: JONATHAN MCCULLOUGH Room #: [address] [place] [address] [place] .R.#: [id number] Admission: 10/12/19 Attend Phys: Cesar Cornejo MD Discharge: Date of : 57 Report #: [id number] EXTREMITIES: No edema. The right arm is in a shoulder immobilizer. NEUROLOGIC: She is oriented to place and situation. She recognizes me. LABORATORY DATA: Chemistry reveals carbon dioxide of 18, anion gap is down to 13, magnesium 1.7. Glucose levels were reviewed and lab reviewed from the ER in the electronic record. ASSESSMENT: 1. Diabetic ketoacidosis. 2. Diabetes type 1, noncompliant with insulin. 3. Recent right humerus fracture, proximal. 4. Chronic obstructive pulmonary disease. 5. Diabetic neuropathy. 6. Tobaccoism. 7. History of alcohol use. 8. History of bipolar. 9. History of pseudoseizures. PLAN: She will continue in ICU on DKA protocol. She is much improved overnight and will advance her diet and likely begin her usual doses of insulin later today. Other home medications to continue, a small dose of hydrocodone for the fracture pain. Once stabilized, we will have Ortho assess her arm, but I believe we will be treating this with an immobilizer. access services assistant will be involved and we may need placement in a skilled facility until her fractures healed. <ELECTRONICALLY SIGNED> By: Cesar Cornejo MD 10/14/19 1008 [id number] Cesar Cornejo MD /nt
--- NOTE | 2019-10-14 10:31 | NUR ---
ASSUMED CARE AT 700, PATIENT REMAINS A&O X 4, PLEASANT AND COOPERATIVE WITH CARES. C/O PAIN TO RUE, PAIN MEDICATION DOES NOT REALLY HELP. SPOKE WITH DR TERRY, NEW RECEIVED FOR PAIN MEDICATION. PATIENT UP TO BATHROOM X 1 ASSIST. NO BOWEL MOVEMENT THIS AM. GOOD URINE OUTPUT. TRANSFER ORDER RECEIVED. ROOM NUMBER ASSIGNED. PATIENT WILL TRANSFER TO ROOM 441. NO FURTHER CONCERNS AT THIS TIME. WILL CONTINUE TO MONITOR AND CARE PER PLAN OF CARE.
--- NOTE | 2019-10-14 14:58 | NUR ---
ASSUMED CARE OF THE PT AT 1300. PTS PAIN CONTROLLED BY PAIN MEDS, SEE EMAR. PT ON RA. FALL PRECAUTIONS IN PLACE. PTS IS BS. R ARM ON IMMOBILIZER. L AC, LFOREARM IV, SALINE LOCKED. BED IN LOWEST POSITION, CALL LIGHT IS WITHIN REACH. WILL CONTINUE TO MONITOR THE PT.
--- NOTE | 2019-10-15 03:38 | NUR ---
VSS-AFEBRILE. LUNGS CLEAR-ROOM AIR. C/O RIGHT ARM APIN RELATED TO FRACTURE, PAIN IS PARTIALLY RELIEVED WITH PRESCRIBED PO PAIN MEDICATION. OOB TO CHAIR WITH SBA FOR BATH, AND TOTAL LINEN BED CHANGE. TOLERATED WELL. CALLS APPROPRIATELY WHEN NEEDING ASSISTANCE TO RESTROOM. RIGHT ARM IMMOBILIZER KEPT IN PLACE THROUGH SHIFT. LEFT AC IV REMOVED DUE TO NO LONGER BEING PATENT. FALL PRECAUTIONS IN PLACE,
[2019-10-15 04:26] VITALS: BP 126/66
[2019-10-15 08:12] VITALS: BP 105/70
[2019-10-15 09:19] LABS: CALCIUM 9.3 mg/dL (8.5-10.1); CREATININE 0.7 mg/dL (0.6-1.0); POTASSIUM 3.5 mmol/L (3.5-5.1)
--- NOTE | 2019-10-15 13:29 | NUR ---
Assess due to high nutrition screening score for unintentional wt loss and decreased appetite. Pt admitted with DKA-had run out of insulin, admitted with n/v and recent fall with humerous fx. Hx DM, and bipolar. typically eats well and appetite has improved over admit. Wt down about 25 lb over 8 mo=18% significant and may be partially related to hyperglycemia as BG have been 200-400's. Will continue to follow trends, BG have improved. Note may discharge to SNF soon. Low nutrition risk
--- NOTE | 2019-10-15 16:15 | NUR ---
ASSUMED CARE OF THE PT AT 0700. PT C/O PAIN AND RECEIVED PAIN MEDS SCHEDULED Q4H. PT HAD C/O BEING IGNORED BY CALL LIGHT AND NOT RECEIVING PAIN MEDS ON ADMISSION DAY, EXPLAINED THE REASON FOR THE DELAY, PT UNDERSTOOD AND APOLOGIZED. R ARM IN IMMOBILIZER. CONSULT CALLED FOR ORTHO. FALL PRECAUTIONS IN PLACE, CALL LIGHT IS WITHIN REACH AND CHAIR ALARM ON. PT IS TRANSFERRING TO 4N, WILL GIVE REPORT TO NURSE.
--- NOTE | 2019-10-15 16:38 | NUR ---
PT ADMITTED RELATED TO DKA; RECENT HUMERUS FX. CM REVIEWED CHART AND SPOKE WITH CARE TEAM. CM MET WITH PT AT BEDSIDE THIS DAY. PT IS A&O X4. MO INIDICATED SHE LIVES IN A HOUSE WITH HER PARENTS WITH 11 STEPS TO ENTER AND 7 STEPS INSIDE. 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 PT HAD BEEN TO [facility] IN THE PAST AND SHE INDICATED THAT SHE IS RECEPTIVE TO GOING THERE AGAIN UPON DC. REFERRAL SENT TO [facility]. CM TO FOLLOW INDICATED WITH DC PLANNING.
--- NOTE | 2019-10-15 16:51 | NUR ---
FAXED REFERRAL TO [facility] RECEIVED CONFIRMATION AND LEFT MSG WITH DIONIC[facility] IN ADM THAT PHYSICAL THERAPY STILL NEEDS TO SEE PT WILL FAX NOTES ONCE AVAILABLE. WILL F/U WITH DIONICIO IN THE MORNING.
--- NOTE | 2019-10-15 17:51 | NUR ---
PT ARRIVED ON UNIT FROM 4S VIA WHEELCHAIR. PT AOX4, VSS, REPORTS PAIN IN RIGHT HUMERUS IS 9/10. ICE PACK ON ARM ALONG WITH AN ICE PACK TO PAIN. PT RECEIVED ORAL PAIN ANALGESIC FROM PREVIOUS NURSE BEFORE COMING TO UNIT. PT TOLERATING DIET, BS 243 INSULIN RECEIVED PER S/S. PT IV IN LEFT FOREARE SL. PT AMBULATES WITH STEADY GAIT TO BATHROOM. NURSE EDUCATED PROJECT BUYER LIGHT. WILL CONTINUE TO MONITOR.
[2019-10-15 18:20] VITALS: BP 121/65
[2019-10-15 19:38] VITALS: BP 126/73
--- NOTE | 2019-10-16 03:39 | NUR ---
ASSUMED CARE OF PATIENT AT APPROX 1999. ASSESSMENT CHARTED. MEDICATIONS GIVEN PER NOV. PATIENT IS A&OX4. PATIENT C/O PAIN AT SHIFT CHANGE. PRN PAIN MEDICATION ADMINISTERED PER NOV. UPON REASSESSMENT PAIN RELIEF WAS POOR; PATIENT STATED ONLY WENT FROM 9 TO 7/10. PATIENT REQUESTS Q4HR PRN PAIN MED EVERY 4HRS AND CONTINUES TO EXPERIENCE LITTLE RELIEF. PATIENT STATES SHE FEELS "POPPING" AT HER R HUMERUS. R ARM IS SIGNIFICANTLY SWOLLEN, BRUISED AND HOT TO TOUCH. SLING WAS SLIGHTLY LOOSENED AT WRIST AND PATIENT EXPRESSED RELIEF. PATIENT IS DRINKING HER WATER AND URINATING WNL. NO PROBLEMS BREATHING NOTED THIS SHIFT. GAIT WHEN AMBULATING IS STRONG AND STEADY. CM MET W PATIENT AND PLAN IS TO D/C TO [facility] ONCE PT WORKS WITH HER. PATIENT VOICES NO OTHER NEEDS AT THIS TIME. FALL PRECAUTIONS IN PLACE. WILL CONTINUE TO MONITOR AND FOLLOW PLAN OF CARE.
[2019-10-16 07:59] VITALS: BP 119/77
--- NOTE | 2019-10-16 09:05 | NUR ---
FRANSICO reviewed chart and spoke with nursing. Pt was [facility] to [facility] from and is progressing towards goals for discharge. FRANSICO faxed updated progress notes and therapy evals to [facility] for review. Requested to submit for insurance authorization. FRANSICO is following to assist as needed with discharge planning.
[2019-10-16] MEDS ORDERED: IPRAT-ALBUT 0.5-3 ML INH (13:00)
[2019-10-16] MEDS ORDERED: NICOTINE TRANSD14 M1 TRANSDERM (13:00)
[2019-10-16] MEDS ORDERED: LANTUS100 UNIT/M SUBQ (13:02)
[2019-10-16] MEDS ORDERED: CALTRATE-600 W1 EACH PO (13:02)
[2019-10-16] MEDS ORDERED: HUMALOG100 UNIT/1 SUBQ (13:02)
[2019-10-16] MEDS ORDERED: PERCOCET 7.5-31 EAC1 PO (13:03)
[2019-10-16] MEDS ORDERED: FOSAMAX 70 MG T70 MG PO (13:08)
--- NOTE | 2019-10-16 18:47 | NUR ---
ASSUMED PATIENT CARE AT 0700. PATIENT IS A&OX4. PATIENT IS UP WITH STANDBY ASSIST AND DOES WELL AMBULATING. PATIENT IS NOT ABLE TO GET PAIN UNDER CONTROL. DR. JORGE NOTIFIED AND ADDITIONAL MUSCLE RELAXER WAS ADDED TO MEDICATIONS. PATIENT HAS HER RUE IMMOBLIZER IN PLACE. PT/OT BOTH WORKED WITH THE PATIENT TODAY. PATIENT IS PENDING D/C TO [place]. PATIENT DURING LUNCH TIME C/O FEELING BAD, BLOOD SUGARS WERE LOW AND NURSE PROVIDED ORANGE JUICE AND YOUGURT, ONCE THE PATIENT ATE AND DRANK THAT SHE WAS FEELING MUCH BETTER AND BLOOD SUGAR WAS BACK UP. PATIENT IS REQUESTING SOMETHING ELSE TO HELP HER HAVE A BM. FALL PRECAUTIONS IN PLACE, CALL LIGHT WITHIN REACH.
--- NOTE | 2019-10-16 19:55 | NUR ---
I AGREE WITH NURSING ASSESSMENT AND NURSING NOTE DONE BY MARK ANTHONY/LAMONTE.
--- NOTE | 2019-10-17 05:30 | NUR ---
Assumed pt care at 1900. A/OX4, VSS. Pt c/o pain to right humerus medicated per EMAR with some relief reported. Right arm with a immobilizer, CMS intact w/edema noted on arm.Pt is up with SBA to bathroom hasn't had a BM 2/5 declined need to call MD for stool softners and wait until dc explained importance of having BM's regularly verbalized understanding but still refused;prune juice as well. Fall precautions in place calling approp.
--- NOTE | 2019-10-17 09:13 | NUR ---
DISCHARGE NOTE: FRANSICO faxed updated clinical and therapy notes to [facility] this morning. FRANSICO received call from Paola at [facility], who states they received insurance authorization and they can admit pt today. Wheelchair van transportation scheduled for 1100 per facility's arrangements. FRANSICO met with pt at bedside to provide update and discuss discharge. Pt is agreeable with plan. Pt states she will notify her mother of discharge. FRANSICO updated attending physician. Discharge orders/summary completed. Attending physician to send script for pain meds to the facility pharmacy directly. FRANSICO faxed d/c ppwk to facility and notified Paola in admissions. Chart copy ordered from . Nursing provided with number to call report. No additional SW needs identified at this time, but is available to assist should needs arise.
[2019-10-17 10:21] VITALS: BP 119/77
--- NOTE | 2019-10-17 10:36 | NUR ---
ASSUME CARE OF PT AT 0700. PT WAS UPSET WITH NURSING CARE BECAUSE SHE REPORTS SHE DOESN'T GET HER SCHEDULED PAIN PILLS ON TIME. DAY NURSE EXPLAINED TO PT SHE HAS TO EXPRESS THE NEED FOR THE PAIN MEDICATION Q 4HRS IN ORDER TO RECEIVE IT. PT RECEIVED PAIN PILL FROM NIGHT NURSE BEFORE SHE WENT HOME. PT TOLERATED BREAKFAST WELL, REFUSED ANY MEDICATION TO ASSIST WITH A BOWEL MOVEMENT. NURSE CALLED [facility] GAVE REPORT TO NURSE QUINN. TRANSPORT WILL TAKE PATIENT TO FACILITY AT 11AM. WILL CONTINUE TO MONITOR.
--- NOTE | 2019-10-17 12:33 | EKG ---
[facility] [place] [address] ELECTROCARDIOGRAM REPORT Name: JONATHAN MCCULLOUGH Room #: 404-P [facility] IN M.R.#: [id number] Admission: 10/12/19 Attend Phys: Cesar Cornejo MD Discharge: 10/17/19 Date of : 57 Report #: [id number] THIS REPORT FOR: cc: Cesar Cornejo MD, David W. MD Lundgren, Craig H. MD [facility] ~ THIS REPORT FOR: //name// [facility] ED Test Date: 2019-10-12 Test Time: 22:38:00 Pat Name: JONATHAN MCCULLOUGH Department: Room: [facility] Gender: F Special Event Assistant: KYLAH : 1955 Requested By: Yusuf Clark Order Number: [id number] MD: Lloyd Aldana Measurements Intervals [place] Rate: 91 P: 9 ME: 97 QRS: 25 QRSD: 90 T: 63 QT: 370 QTc: 456 Interpretive Statements Sinus rhythm Short ME interval Poor R wave progression Low voltage, extremity and precordial leads No previous ECG available for comparison Electronically Signed On 10-15-2019 7:21:06 GRAVURE PRESS OPERATOR by Lloyd Aldana [email or web address] <ELECTRONICALLY SIGNED> By: Lloyd Aldana MD, [facility] 10/15/19 0721 37 Lloyd Aldana MD, [facility] /EPI
--- NOTE | 2019-10-19 11:41 | D ---
[facility] [place] [address] DISCHARGE SUMMARY Name: JONATHAN MCCULLOUGH Room #: 404-P [facility] IN M.R.#: [id number] Admission: 10/12/19 Attend Phys: Cesar Cornejo MD Discharge: 10/17/19 Date of : 57 Report #: [id number] THIS REPORT FOR: cc: Cesar Cornejo MD, David W. MD Peters, David W. MD ~ THIS REPORT FOR: //name// CC: Cesar Cornejo DATE OF SERVICE: 10/17/2019 FINAL DIAGNOSES: 1. Diabetic ketoacidosis. 2. Diabetes type 1, uncontrolled. 3. Acute right humerus fracture. 4. Neuropathy. 5. Frequent falls. HOSPITAL COURSE: The patient was admitted through the Emergency Room with nausea, vomiting, weakness and was diagnosed with DKA. She is admitted and treated in ICU per protocol. Her symptoms improved overnight and by the second full hospital day, she was off the insulin drip, tolerating a diet and back on her subcutaneous insulin. She was transferred up to the floor. Orthopedics saw her in consultation and continued to recommend right shoulder immobilizer for the right humerus fracture and follow up as an outpatient. I discussed with her ongoing care issues and concerns at home. She agreed to a fdc care. DISPOSITION: She will be transferred to [facility]. I signed her discharge orders, medications and provided followup information. She will have a diabetic diet. PT, OT nonweightbearing on the right arm. She will be followed by in-house physician and referral ____ Orthopedics outpatient. <ELECTRONICALLY SIGNED> By: Cesar Cornejo MD 10/19/19 1141 1201 1208 Cesar Cornejo MD /nt
== END 2019-10-17 11:45 | DRG 637 ==
LOC: ER 21:20 → EROBS 22:55 → 4S 22:55 → 4N 22:55 → ICU 23:29 → 4S 10-14 12:45 → 4N 10-15 16:43
PROVIDERS: Emergency Medicine; ADMIT Internal Medicine Geriatric Medicine
DX: E10.10 Type 1 diabetes mellitus with ketoacidosis without coma (principal); E43 Unspecified severe protein-calorie malnutrition; S42.301A Unspecified fracture of shaft of humerus, right arm, initial encounter for closed fracture; X58.XXXA Exposure to other specified factors, initial encounter; J44.9 Chronic obstructive pulmonary disease, unspecified; R26.89 Other abnormalities of gait and mobility; I25.10 Atherosclerotic heart disease of native coronary artery without angina pectoris; M79.7 Fibromyalgia; F31.9 Bipolar disorder, unspecified; R29.6 Repeated falls; F17.210 Nicotine dependence, cigarettes, uncomplicated; E87.5 Hyperkalemia; M81.0 Age-related osteoporosis without current pathological fracture; Z79.84 Long term (current) use of oral hypoglycemic drugs; Z90.710 Acquired absence of both cervix and uterus; Z79.891 Long term (current) use of opiate analgesic; Z79.899 Other long term (current) drug therapy; Z91.14 Patient's other noncompliance with medication regimen; Y93.89 Activity, other specified; Y92.89 Other specified places as the place of occurrence of the external cause; Y99.8 Other external cause status
CPT/HCPCS: 10078; 10091; 10102; 10195

== ENCOUNTER 2019-10-25 00:42 | Emergency (ER) | payer OTHER ==
[~2019-10-25] VITALS: Ht 170.2 cm; Wt 56.4 kg
[~2019-10-25 00:42] MED LIST changes: +CALTRATE-600 W1 EACH PO; +FOSAMAX 70 MG T70 MG PO; +PERCOCET 7.5-31 EAC1 PO
[2019-10-25 02:08] LABS: ABSOLUTE NEUTROPHILS 4.5 thou/uL (1.4-8.2); BASOPHILS 0.9 % (0.0-2.0); EOSINOPHILS 3.7 % (0.0-3.0); HEMATOCRIT 32.3 % (37.0-47.0); HEMOGLOBIN 10.4 gm/dL (12.0-15.0); LYMPHOCYTES 28.7 % (24.0-44.0); MCH 29.5 pg (26.0-34.0); MCHC 32.2 g/dL (28.0-37.0); MCV 91.6 fL (80.0-100.0); PLATELET COUNT 515 thou/uL (150-400); POLYS 54.7 % (36.0-66.0); RBC 3.52 mil/uL (4.20-5.00); RDW 14.1 % (10.5-14.5); WBC 8.2 thou/uL (4.0-11.0)
[2019-10-25 02:20] LABS: CALCIUM 9.9 mg/dL (8.5-10.1); CREATININE 0.9 mg/dL (0.6-1.0); POTASSIUM 3.9 mmol/L (3.5-5.1)
[2019-10-25 02:26] LABS: TOTAL BILIRUBIN 0.3 mg/dL (<0.1-1.0); TOTAL PROTEIN 6.4 g/dL (6.4-8.2)
[2019-10-25 04:49] LABS: URINE BILIRUBIN NEGATIVE (Negative); URINE BLOOD NEGATIVE (Negative); URINE CLARITY CLEAR; URINE COLOR YELLOW; URINE GLUCOSE-RANDOM* NEGATIVE (Negative); URINE KETONES NEGATIVE (Negative); URINE LEUKOCYTES-REFLEX NEGATIVE (Negative); URINE NITRITE-REFLEX NEGATIVE (Negative); URINE PROTEIN (DIPSTICK) NEGATIVE (Negative); URINE UROBILINOGEN 0.2 E.U./dl (0.2-1.0)
[2019-10-25 06:11] VITALS: BP 97/56
--- NOTE | 2019-10-25 08:19 | EKG ---
[facility] [place] [address] ELECTROCARDIOGRAM REPORT Name: JONATHAN MCCULLOUGH [id number] Admission: 10/25/19 Attend Phys: Discharge: 10/25/19 Date of : 57 Report #: [id number] THIS REPORT FOR: cc: Cesar Cornejo MD, David W. MD Couchonnal, Luis F. MD ~ THIS REPORT FOR: //name// [facility] ED Test Date: 2019-10-25 Test Time: 02:09:47 Pat Name: JONATHAN MCCULLOUGH Department: Room: Gender: Youth Development Specialist: [facility] : 1955 Requested By: Arden Villa Order Number: [id number] : Georgi Rojas Measurements Intervals [place] Rate: 81 P: 69 DE: 158 QRS: 10 QRSD: 88 T: 53 QT: 387 QTc: 450 Interpretive Statements Sinus rhythm Left atrial enlargement Low voltage, precordial leads Compared to ECG 10/12/2019 22:38:00 Atrial abnormality now present Short DE interval no longer present Poor R-wave progression no longer present Electronically Signed On 10-25-2019 8:18:26 FILM INSPECTOR by Georgi Rojas [email or web address] <ELECTRONICALLY SIGNED> By: Georgi Rojas MD 10/25/19817 8 8 Georgi Rojas MD /EPI
== END 2019-10-25 06:11 | disposition home or self-care (01) ==
LOC: ER 00:42
PROVIDERS: Emergency Medicine
DX: S16.1XXA Strain of muscle, fascia and tendon at neck level, initial encounter (principal); M79.7 Fibromyalgia; E10.40 Type 1 diabetes mellitus with diabetic neuropathy, unspecified; I25.10 Atherosclerotic heart disease of native coronary artery without angina pectoris; F31.9 Bipolar disorder, unspecified; F17.210 Nicotine dependence, cigarettes, uncomplicated; Z79.899 Other long term (current) drug therapy; Z90.710 Acquired absence of both cervix and uterus; W19.XXXA Unspecified fall, initial encounter; Y93.89 Activity, other specified; Y92.89 Other specified places as the place of occurrence of the external cause; Y99.8 Other external cause status

== ENCOUNTER 2020-01-02 18:00 | Inpatient (IN) | payer OTHER ==
[~2020-01-02] VITALS: Ht 162.6 cm; Wt 52.8 kg
[2020-01-02] VITALS (7 sets, daily range): BP systolic 112–134; BP diastolic 59–76
[2020-01-02 18:49] LABS: HCO3 19.3 mmol/L (22.0-26.0); PCO2 VENOUS 41.6 mmHg (41.0-51.0); PO2 VENOUS 31.6 mmHg (35.0-45.0)
[2020-01-02] MEDS ORDERED: PERCOCET 10-321 EAC1 PO (18:50)
[2020-01-02] MEDS ORDERED: HUMALOG KW100 UNIT/1 SUBQ (18:52)
[2020-01-02 19:05] LABS: URINE BILIRUBIN NEGATIVE (Negative); URINE BLOOD NEGATIVE (Negative); URINE CLARITY CLEAR; URINE COLOR YELLOW; URINE GLUCOSE-RANDOM* 3+ (Negative); URINE KETONES 2+ (Negative); URINE LEUKOCYTES-REFLEX NEGATIVE (Negative); URINE NITRITE-REFLEX NEGATIVE (Negative); URINE PROTEIN (DIPSTICK) NEGATIVE (Negative); URINE SPECIFIC GRAVITY <= 1.005 (1.005-1.035); URINE UROBILINOGEN 0.2 E.U./dl (0.2-1.0)
[2020-01-02 19:07] LABS: ABSOLUTE NEUTROPHILS 6.8 thou/uL (1.4-8.2); BASOPHILS 0.3 % (0.0-2.0); EOSINOPHILS 0.7 % (0.0-3.0); HEMATOCRIT 42.4 % (37.0-47.0); HEMOGLOBIN 13.8 gm/dL (12.0-15.0); LYMPHOCYTES 20.9 % (24.0-44.0); MCH 28.9 pg (26.0-34.0); MCHC 32.6 g/dL (28.0-37.0); MCV 88.6 fL (80.0-100.0); MONOCYTES 5.9 % (1.0-8.0); PLATELET COUNT 315 thou/uL (150-400); POLYS 72.2 % (36.0-66.0); RBC 4.78 mil/uL (4.20-5.00); RDW 15.7 % (10.5-14.5); WBC 9.4 thou/uL (4.0-11.0)
[2020-01-02 19:19] LABS: ALBUMIN 4.3 g/dL (3.4-5.0); CALCIUM 10.2 mg/dL (8.5-10.1); CREATININE 1.6 mg/dL (0.6-1.0); POTASSIUM 4.5 mmol/L (3.5-5.1); TOTAL BILIRUBIN 0.5 mg/dL (<0.1-1.0); TOTAL PROTEIN 7.5 g/dL (6.4-8.2)
[2020-01-02 20:23] LABS: MAGNESIUM 1.9 mg/dL (1.8-2.4); PHOSPHORUS 3.6 mg/dL (2.5-4.9)
--- NOTE | 2020-01-02 20:40 | NUR ---
64 y/o female admiited to ICU room 249 w/ DX: DKA, DARNELL, Right shoulder pain. Pt assisted to bed and oriented to room. See nursing admission history. Pt c/o 06/14 right shoulder pain. Previous right humerus fx remains present on XRay. Oxydocone 10mg given in ER @1830. Neuro intact. Pt c/o being thirsty and hungry. NS bolus infusing per protocol. Insulin gtt at 3 u/hr. VSS. Afebrile. Room air. Lungs clear. Harsh nonproductive cought noted. Pt states it is her smoker's cought. BS active. Pt denies nausea. Assisted up to bedside commode to void. Tolerated fair, extreme pain right shoulder. Blood sugar on admission 390. Patient's mother called per pt and notified of privacy code and room number.
--- NOTE | 2020-01-02 22:10 | NUR ---
Marlene Loomis CIGAR SORTER called re: continued severe right shoulder pain despite total of 6mg morphine. Additional orders rec'd for Oxcontin 5mg extended release q 12 and hydromophone 0.5mg IV q 3hr. Maint. IVF changed to D5NS w/ 20meq KCL at 150ml/hr per protocol.
--- NOTE | 2020-01-02 22:36 | NUR ---
Oxycodone 5mg extended release given as ordered for continued right shoulder pain 06/14.
[2020-01-03] VITALS (12 sets, daily range): BP systolic 93–131; BP diastolic 52–73
--- NOTE | 2020-01-03 00:15 | NUR ---
Pt finally more comfortable after hydromorphone 0.5mg given IV at 2348 and ice pack placed to right humerus. Emotional support given.
[2020-01-03 00:20] LABS: CREATININE 0.8 mg/dL (0.6-1.0); MAGNESIUM 1.6 mg/dL (1.8-2.4)
[2020-01-03 00:21] LABS: CALCIUM 8.2 mg/dL (8.5-10.1); POTASSIUM 3.5 mmol/L (3.5-5.1)
--- NOTE | 2020-01-03 00:30 | NUR ---
4 labs drawn per lab. Anion gap closed. Maint. IVF changed to D51/2NS w/ 20meq KCL at 150ml/hr.
--- NOTE | 2020-01-03 01:41 | NUR ---
Kphos 15mm IVPB and Magnesium 2gm IVPB up as ordered.
[2020-01-03 05:27] LABS: CALCIUM 8.3 mg/dL (8.5-10.1); CREATININE 0.6 mg/dL (0.6-1.0); MAGNESIUM 2.3 mg/dL (1.8-2.4); PHOSPHORUS 2.9 mg/dL (2.5-4.9); POTASSIUM 4.1 mmol/L (3.5-5.1)
--- NOTE | 2020-01-03 05:45 | NUR ---
Anion gap closed. Lantus 10u given as ordered. Insulin gtt at 1 u/hr; will turn off at 0645. Maint. IVF changed to Normal Saline at 125ml/hr. ADA diet ordered. Pain better controlled with addition of dilaudid 0.5mg IV q 3hr.
--- NOTE | 2020-01-03 06:26 | NUR ---
DKA resolved. Anion gap closed=8. Electrolytes corrected. BS 115. Tolerating po. UOP 550ml/11hrs.
[2020-01-03 08:42] LABS: CALCIUM 8.2 mg/dL (8.5-10.1); CREATININE 0.6 mg/dL (0.6-1.0)
[2020-01-03 08:45] LABS: PHOSPHORUS 2.6 mg/dL (2.5-4.9)
--- NOTE | 2020-01-03 10:40 | NUR ---
chart review. jed spoke with bedside nurse who stated she be able to talk via phone, was visiting. cm tried calling anthony via phone call, number listed is her mom kimberlyn [phone]. intro to cm, transition of care, skilled and hh. " she been to [facility] before, she has brittle bone and brittle dm. broken ribs and arm alone with lots of increased pain over last few months. she has also lots allot of wt. at home 130lbs and now 106lbs. she has her cell home and histology technologist out in her car in parking lot. would like someone to go and get her phone so her children in [place] to call her. she not been doing well. she is independent when feeling well. no insulin pump she just on insulin shots. she has dm supplies at home. she only get up around noon has big breakfast and then just little for dinner. manage own medication and drives vehicle. thank you for listening"/mom kimberlyn.
--- NOTE | 2020-01-03 13:33 | NUR ---
DR GIMENEZ NOTIIED OF PATIENT STATING THAT THE PAIN MANAGEMENT PLAN IS NOT HELPING WITH HER RT SHOULDER PAIN. DR MENDIOLA'S OFFICE NOTIFIED OF CONSULT, CALLED BACK AND WILL SEE TOMORROW, PATIENT INFORMED. ICE TO RT SHOULDER FOR COMFORT. ASSISTED UP TO THE BATHROOM.
--- NOTE | 2020-01-03 16:34 | NUR ---
TO CT AND BACK ESCORTED BY THIS NURSE WITH GM VIDEO AT [address] OF CHEST AND ABD. WITHOUT INCIDENT. URINE OBTAINED FOR UA. PATIENT RESTING QUIETLY AFTER PAIN MED GIVEN. WILL CONTINUE TO MONITOR.
--- NOTE | 2020-01-03 19:00 | NUR ---
PATIENT TRANSFERRED TO ROOM 440 VIA W/C AT 1850 WITH BELONGINGS. REPORT CALLED TO AILIN BLACKMAN. PATIENT GIVEN PAIN MED PRIOR TO TRANFER FOR RT SHOULDER PAIN 04/14. PATIENT ALERT AND STEADY GAIT NOTED.
[2020-01-04 01:07] LABS: GLYCOHEMOGLOBIN (HGB A1C) 13.4 % (4.8-5.6)
[2020-01-04 03:46] VITALS: BP 114/61
--- NOTE | 2020-01-04 05:12 | NUR ---
Assumed pt care at 1900. Pt's A/OX4,VSS. Oxygen applied at 2L/NC. Fall education provided to pt and agreed to call for help before getting OOB;hx of frequent falls. Fall precautions implemented. Pt c/o pain to right shoulder,medicated per EMAR and icepack provided reports some relief. IVF infusing via LAC w/o problems. Resting w/o distress noted, will continue to monitor.
[2020-01-04 05:28] LABS: ABSOLUTE NEUTROPHILS 4.9 thou/uL (1.4-8.2); BASOPHILS 0.7 % (0.0-2.0); EOSINOPHILS 2.4 % (0.0-3.0); HEMATOCRIT 42.1 % (37.0-47.0); HEMOGLOBIN 13.6 gm/dL (12.0-15.0); LYMPHOCYTES 33.6 % (24.0-44.0); MCH 28.7 pg (26.0-34.0); MCHC 32.2 g/dL (28.0-37.0); MCV 89.2 fL (80.0-100.0); MONOCYTES 7.5 % (1.0-8.0); PLATELET COUNT 276 thou/uL (150-400); POLYS 55.8 % (36.0-66.0); RBC 4.72 mil/uL (4.20-5.00); RDW 15.4 % (10.5-14.5); WBC 8.8 thou/uL (4.0-11.0)
[2020-01-04 05:56] LABS: ALBUMIN 3.4 g/dL (3.4-5.0); CALCIUM 9.3 mg/dL (8.5-10.1); CREATININE 0.7 mg/dL (0.6-1.0); POTASSIUM 4.3 mmol/L (3.5-5.1); TOTAL BILIRUBIN 0.4 mg/dL (<0.1-1.0); TOTAL PROTEIN 6.3 g/dL (6.4-8.2)
[2020-01-04 07:47] VITALS: BP 94/74
--- NOTE | 2020-01-04 10:12 | HC ---
[facility] [place] [address] CONSULTATION Name: JONATHAN MCCULLOUGH Room #: 440-P [facility] IN .R.#: [id number] Admission: 01/02/20 Attend Phys: Xiang Jefferson MD Discharge: Date of : 57 Report #: [id number] THIS REPORT FOR: cc: Bello Unger MD,Gerald Bryant MD, MD ~ CC: Xiang Unger DATE OF SERVICE: 01/03/2020 ENDOCRINE CONSULTATION NOTE CONSULTING PHYSICIAN: Dr. Jefferson. REASON FOR CONSULTATION: DKA, uncontrolled type 1 diabetes mellitus. HISTORY OF PRESENT ILLNESS: This is a 64-year-old female patient who presented yesterday with a primary concern of right shoulder pain in addition to progressive weakness, fatigue that is associated with significant weight loss of 30 pounds over the past few months. The patient's background is significant for type 1 diabetes mellitus diagnosed over 20 years ago. The patient is maintained on a regimen of Lantus and NovoLog and describes what sounded like a bit of confusion surrounding the dose selection as she fluctuates her Lantus insulin intake between 10-15 units daily in addition to adjusting her Humalog intake from 3-5 units per meal. She describes blood glucose values that are predominantly elevated and in the 300 mg/dL range, although she does have occasional hypoglycemia. The patient describes severe hypoglycemic symptoms when she gets the blood glucose value under 100 mg/dL. She went on to say that she would develop seizures when she gets the blood glucose values under 100 mg/dL. The patient seems to have significant eye disease, although she believes this is due to cataract surgery rather than diabetic retinopathy. She does have chronic difficulties with peripheral neuropathy as well as coronary artery disease. Otherwise, her past medical history is noted for osteoporosis with left wrist fracture as well as fibromyalgia and bipolar disorder. On presentation, the patient was found to be in DKA and was admitted to the ICU for further care and monitoring. REVIEW OF SYSTEMS: CONSTITUTIONAL: Fatigue, tiredness, progressive weight loss of 30 pounds over the past 2 months, but not fever or chills. [facility] [address] [place] [address] CONSULTATION Name: JONATHAN MCCULLOUGH Room #: 440-P [facility] IN .R.#: [id number] Admission: 01/02/20 Attend Phys: Xiang Jefferson MD Discharge: Date of : 57 Report #: [id number] HEENT: Negative for sore throat, sinus pain or ear drainage. PULMONARY: Negative for shortness of breath, cough or hemoptysis. CARDIAC: Negative for chest pain, palpitations, syncope or presyncope. GASTROINTESTINAL: Noted for occasional abdominal discomfort and nausea, but no vomiting or significant changes in bowel movement frequency. NEUROLOGY: Baseline peripheral diabetic neuropathy painful as well as difficulties walking. The patient describes recurrent seizures marked in her medical records as pseudoseizures. MUSCULOSKELETAL: The patient has had right shoulder fracture as well as a recent identification of a mass in her right shoulder. Otherwise, review of systems noncontributory other than those mentioned in HPI. PAST MEDICAL HISTORY: 1. Type 1 diabetes mellitus. 2. Diabetic retinopathy. 3. Peripheral diabetic neuropathy. 4. Coronary artery disease. 5. Bipolar disorder. 6. Pseudoseizures. 7. Fibromyalgia. 8. Chronic obstructive pulmonary disease. 9. Osteoporosis with left wrist fracture and a recent right humeral fracture. 10. Paroxysmal vertigo. 11. Hyperlipidemia. OUTPATIENT MEDICATIONS: Include naproxen p.r.n., gabapentin 600 mg q.i.d., ipratropium, albuterol q. 4 hours p.r.n., calcium carbonate with vitamin D t.i.d., Lantus insulin 15 units daily, Humalog insulin 3-5 units daily, Fosamax 70 mg weekly, Prozac 60 mg daily, Elavil 100 mg at bedtime. PAST SURGICAL HISTORY: Hysterectomy, fracture surgeries multiple. ALLERGIES: No known drug allergies. FAMILY HISTORY: Noncontributory. SOCIAL HISTORY: She lives with her parents. She smokes a pack per day. Denies use of alcohol. PHYSICAL EXAMINATION: GENERAL: Pleasant female patient who is not in apparent pain or distress. VITAL SIGNS: Blood pressure is 113/68 mmHg, heart rate is 82 beats per minute, respirations 19 per minute, temperature 36.9 Celsius. CONSTITUTIONAL: Pleasant female patient not in apparent pain or distress, sitting upright in bed, seems comfortable. [address] [address] CONSULTATION Name: JONATHAN MCCULLOUGH Dorene Room #: 440-P [facility] IN M.R.#: [id number] Admission: 01/02/20 Attend Phys: Xiang Jefferson MD Discharge: Date of : 57 Report #: [id number] HEENT: Anicteric sclerae. Intact extraocular motions. NECK: Supple, without JVD, carotid bruits or lymphadenopathy. I do not appreciate thyromegaly. CHEST: Noted for limited air entry bilaterally with scattered rales and rhonchi. HEART: Regular rate and rhythm without murmurs or gallops. ABDOMEN: Soft, lax. No guarding. Active bowel sounds. EXTREMITIES: Lower extremity exam is noted for trace ankle edema, skin breaks, ulcerations. Sensation to light touch is moderately diminished bilaterally. NEUROLOGIC: Awake, alert and oriented to time, place and person. The remainder of her examination is mostly focal for peripheral sensory deficits. PSYCHIATRIC: Pleasant, interactive. Normal mood and affect. LABORATORY DATA: Blood glucose on arrival was over 400 mg/dL and has progressively declined to where is under 160 mg/dL over the past several hours and sodium is 134, potassium 4.0, chloride 101, CO2 of 26, anion gap 7, BUN 6, creatinine 0.6, glucose 154 on arrival was 592 mg/dL, anion gap on arrival was 12. Lipase 38, AST 9, total bilirubin 0.5, calcium 8.2, phosphorus 2.6, magnesium 2.0, alkaline phosphatase 134, ALT 15, total protein 7.5, albumin 3.0. EGFR 101. INR 1.0. White blood count 9.4, hemoglobin 13.8, hematocrit 42.4, platelets 315. Hemoglobin A1c was ordered and is pending. Urine ketones were positive. ASSESSMENT AND PLAN: Diabetic ketoacidosis. The patient presented under conditions of severe hyperglycemia as well as positive blood acetone, but normal anion gap. This possibly could represent early diabetic ketoacidosis changes and the patient was managed appropriately with intravenous insulin and intravenous fluid, which she has done very well with. Towards the last several hours of her IV insulin therapy, the patient had needed 1 unit of insulin per hour rather consistently, and she is being transitioned to subcutaneous insulin therapy at this point in time given her stability. Type 1 diabetes mellitus. Uncontrolled and marked by inconsistent insulin dosing as well as severe hyperglycemia. It appears that the patient has significant anxiety regarding blood glucose values under 100 mg/dL. The patient was counseled at length about the pathogenesis of type 1 diabetes mellitus as well as the need to achieve and maintain adequate glycemic control so as to avoid diabetic complications which she seems to understand well. Given the patient's recorded IV insulin needs, she was transitioned to Lantus insulin 10 units earlier today. I will maintain the patient on a combination of Lantus insulin 12 units daily in addition to Humalog supplemental scale low intensity as well as Humalog scheduled coverage for meals at 3 units t.i.d. a.c. Blood glucose monitoring will commence a.c. and at bedtime. [facility] [address] [place] [address] CONSULTATION Name: JONATHAN MCCULLOUGH Dorene Room #: 440-P [facility] IN [facility].#: [id number] Admission: 01/02/20 Attend Phys: Xiang Jefferson MD Discharge: Date of : 57 Report #: [id number] Diabetic neuropathy. The patient has significant baseline issues with diabetic neuropathy and is maintained on gabapentin with only partial relief. This is to be resumed as per the hospital medicine team. I certainly appreciate this consultation by Dr. Jefferson. <ELECTRONICALLY SIGNED> By: Gerald Gil MD 01/04/20 1012 1235 45 Gerald Gil MD /nt
--- NOTE | 2020-01-04 10:46 | NUR ---
PATIENT AT THIS TIME IS SLEEPING. IV NURSE PLACED IV ACSESS. TOOK AM MEDS THIS MORNING. BLOOD SUGARS CHECKED INSULIN ORDERED. DR GIMENEZ HERE TO SEE PATIENT. WILL DC IV PAIN MEDS GIVE HER PO PAIN MEDS. CONSULT FOR ONCOLOGY. DC FLUIDS. PT TO WORK WITH PT/ OT.
[2020-01-04] MEDS ORDERED: ZOFRAN 4 MG ORAL4 MG PO (13:55)
[2020-01-04] MEDS ORDERED: LANTUS100 UNIT/M SUBQ (13:55)
[2020-01-04] MEDS ORDERED: PROTONIX40 M4 PO (13:55)
[2020-01-04] MEDS ORDERED: COLACE 100 MG100 MG PO (13:55)
[2020-01-04] MEDS ORDERED: LIDOPATCH1 EACH TRANSDERM (13:55)
[2020-01-04] MEDS ORDERED: MIRALAX17 GM PO (13:55)
[2020-01-04 14:22] VITALS: BP 94/74
--- NOTE | 2020-01-04 14:36 | NUR ---
ORTHO ASSESSED AND INDICATED NO SURGICAL INTERVENTION NEEDED. CARE TEAM INDICATED THAT PT IS MEDICALLY STABLE TO DC HOME THIS DAY WITH HH SERVICES. PT INDICATED SHE HAD USED [facility] IN THE PAST AND THAT SHE WOULD USE THEM AGAIN UPON DC. REFERRAL SENT TO [facility]. HEARD FROM [facility] AND TURNS OUT PT IS CURRENT;Y ON SERVICE WITH [facility]. PT IS TO DC HOME THIS DAY. PT INDICATED SHE HAS HER CAR HERE AND WILL DRIVE HERSELF HOME. [facility] WITH PT. NO OTHER DC NEEDS ANTICIPATED.
[2020-01-04 14:42] VITALS: BP 94/74
[2020-01-04 14:46] VITALS: BP 94/74
[2020-01-04 15:00] VITALS: BP 94/74
--- NOTE | 2020-01-04 15:02 | NUR ---
DISCHARGE PAPERS GONE OVER WITH PATIENT SIGNED AND COPY IN CHART. IV ACSESS DCD ALL BELONGINGS PACKED AND SENT WITH PATIENT. NO RX'S GIVEN. PT TAKEN W/C TO HER CAR AT THIS TIME.
--- NOTE | 2020-01-04 16:48 | NUR ---
FAXED DC ORDERS/SUMMARY TO [facility] SPOKE WITH LOS IN INTAKE SHE RECEIVED ORDERS AND WILL NOTIFY PT TIME OF VISITS.
[2020-01-04 21:07] LABS: GLOBULIN TOTAL 2.1 g/dL (2.2-3.9); M-SPIKE Not Observed g/dL (Not Observed)
[2020-01-04 22:07] LABS: URINE PROTEIN (MG/DL) 22.1 mg/dL (Not Estab.)
== END 2020-01-04 15:21 | disposition home health service (06) | DRG 637 ==
LOC: ER 18:00 → EROBS 19:36 → ICU 19:36 → 4S 01-03 19:00
PROVIDERS: Emergency Medicine; Nurse Practitioner Family; Orthopaedic Surgery; ADMIT Hospitalist
DX: E10.10 Type 1 diabetes mellitus with ketoacidosis without coma (principal); N17.0 Acute kidney failure with tubular necrosis; N17.9 Acute kidney failure, unspecified; E87.1 Hypo-osmolality and hyponatremia; M84.421A Pathological fracture, right humerus, initial encounter for fracture; N17.8 Other acute kidney failure; E86.0 Dehydration; M81.8 Other osteoporosis without current pathological fracture; J44.9 Chronic obstructive pulmonary disease, unspecified; E10.42 Type 1 diabetes mellitus with diabetic polyneuropathy; F17.210 Nicotine dependence, cigarettes, uncomplicated; I25.10 Atherosclerotic heart disease of native coronary artery without angina pectoris; F31.9 Bipolar disorder, unspecified; E10.319 Type 1 diabetes mellitus with unspecified diabetic retinopathy without macular edema; Z83.3 Family history of diabetes mellitus; Z90.710 Acquired absence of both cervix and uterus; Z79.899 Other long term (current) drug therapy
CPT/HCPCS: 10078; 10102; 10203

== ENCOUNTER 2020-01-13 10:02 | Inpatient (IN) | payer OTHER ==
[2020-01-13] VITALS (9 sets, daily range): BP systolic 150–173; BP diastolic 67–91
[~2020-01-13] VITALS: Ht 162.6 cm; Wt 57.2 kg
[~2020-01-13 10:02] MED LIST changes: +COLACE 100 MG100 MG PO; +HUMALOG KW100 UNIT/1 SUBQ; +LIDOPATCH1 EACH TRANSDERM; +MIRALAX17 GM PO; +PERCOCET 10-321 EAC1 PO; +PROTONIX40 M4 PO; +ZOFRAN 4 MG ORAL4 MG PO
[2020-01-13] MEDS ORDERED: MS CONTIN 30 MG30 M1 PO (10:05)
[2020-01-13 10:56] LABS: BE(vivo) -6.9 mmol/L (-2 to +3); HCO3 15.1 mmol/L (22.0-26.0); PCO2 VENOUS 22.9 mmHg (41.0-51.0); PO2 VENOUS 66.5 mmHg (35.0-45.0)
[2020-01-13 11:26] LABS: ABSOLUTE NEUTROPHILS 5.4 thou/uL (1.4-8.2); BASOPHILS 0.8 % (0.0-2.0); HEMATOCRIT 42.1 % (37.0-47.0); HEMOGLOBIN 13.9 gm/dL (12.0-15.0); LYMPHOCYTES 19.7 % (24.0-44.0); MCH 28.9 pg (26.0-34.0); MCV 87.8 fL (80.0-100.0); MONOCYTES 10.3 % (1.0-8.0); PLATELET COUNT 438 thou/uL (150-400); POLYS 69.2 % (36.0-66.0); RBC 4.79 mil/uL (4.20-5.00); WBC 7.8 thou/uL (4.0-11.0)
[2020-01-13 11:27] LABS: CREATININE 0.9 mg/dL (0.6-1.0); POTASSIUM 4.1 mmol/L (3.5-5.1)
[2020-01-13 11:35] LABS: ALBUMIN 3.5 g/dL (3.4-5.0); TOTAL BILIRUBIN 0.7 mg/dL (<0.1-1.0); TOTAL PROTEIN 6.8 g/dL (6.4-8.2)
[2020-01-13 12:13] LABS: URINE BILIRUBIN NEGATIVE (Negative); URINE BLOOD NEGATIVE (Negative); URINE CLARITY CLEAR; URINE COLOR YELLOW; URINE GLUCOSE-RANDOM* 2+ (Negative); URINE KETONES 3+ (Negative); URINE LEUKOCYTES-REFLEX NEGATIVE (Negative); URINE NITRITE-REFLEX NEGATIVE (Negative); URINE PROTEIN (DIPSTICK) NEGATIVE (Negative); URINE SPECIFIC GRAVITY 1.025 (1.005-1.035); URINE UROBILINOGEN 0.2 E.U./dl (0.2-1.0)
[2020-01-13 13:39] LABS: CALCIUM 9.9 mg/dL (8.5-10.1); CREATININE 0.9 mg/dL (0.6-1.0); POTASSIUM 4.1 mmol/L (3.5-5.1)
[2020-01-13 13:43] LABS: ALBUMIN 3.5 g/dL (3.4-5.0); MAGNESIUM 1.6 mg/dL (1.8-2.4); PHOSPHORUS 2.2 mg/dL (2.5-4.9)
[2020-01-14] VITALS (29 sets, daily range): BP systolic 81–166; BP diastolic 49–91
[2020-01-14 01:53] LABS: CALCIUM 9.3 mg/dL (8.5-10.1); CREATININE 1.1 mg/dL (0.6-1.0); MAGNESIUM 1.5 mg/dL (1.8-2.4); POTASSIUM 4.2 mmol/L (3.5-5.1)
[2020-01-14 06:23] LABS: CALCIUM 9.5 mg/dL (8.5-10.1); CREATININE 0.9 mg/dL (0.6-1.0); MAGNESIUM 1.7 mg/dL (1.8-2.4); POTASSIUM 4.3 mmol/L (3.5-5.1)
--- NOTE | 2020-01-14 08:35 | EKG ---
[facility] [place] [address] ELECTROCARDIOGRAM REPORT Name: JONATHAN MCCULLOUGH Room #: 250-P ADM IN M.R.#: [id number] Admission: 01/13/20 Attend Phys: Tc Denney MD Discharge: Date of : 57 Report #: [id number] THIS REPORT FOR: cc: Bello Unger MD, Christopher B. MD Lundgren,Lloyd Fatima MD [facility] ~ THIS REPORT FOR: //name// [facility] ED Test Date: 2020-01-13 Test Time: 11:01:24 Pat Name: JONATHAN MCCULLOUGH Department: Room: [facility] Gender: F Travel Administrator: NT : 1955 Requested By: Ayse Wong Order Number: [id number] MD: Lloyd Aldana Measurements Intervals Datto Rate: 80 P: 79 WV: 143 QRS: 35 QRSD: 91 T: 33 QT: 406 QTc: 469 Interpretive Statements Sinus rhythm Poor R wave progression Anterior T wave abnormality Compared to ECG 10/25/2019 02:09:47 T wave abnormality is now present Electronically Signed On 01-14-2020 8:34:05 CDT by Lloyd Aldana [email or web address] <ELECTRONICALLY SIGNED> By: Lloyd Aldana MD, [facility] 01/14/20 0834 1101 1101 Lloyd Aldana MD, [facility] /EPI
[2020-01-14 09:34] LABS: CALCIUM 9.2 mg/dL (8.5-10.1); CREATININE 0.8 mg/dL (0.6-1.0); POTASSIUM 4.3 mmol/L (3.5-5.1)
[2020-01-14 13:54] LABS: CREATININE 0.8 mg/dL (0.6-1.0); POTASSIUM 4.3 mmol/L (3.5-5.1)
[2020-01-14 13:59] LABS: ALBUMIN 3.3 g/dL (3.4-5.0); MAGNESIUM 1.6 mg/dL (1.8-2.4); PHOSPHORUS 1.5 mg/dL (2.5-4.9)
[2020-01-15] VITALS (72 sets, daily range): BP systolic 69–129; BP diastolic 40–82
[2020-01-15 00:38] LABS: BE(vivo) -11.3 mmol/L (-2 to +3); PCO2 25.9 mmHg (35.0-45.0); pH 7.319 (7.360-7.450); sO2 94.1 % (92.0-98.0)
[2020-01-15 02:20] LABS: CALCIUM 8.7 mg/dL (8.5-10.1); CREATININE 0.7 mg/dL (0.6-1.0); POTASSIUM 3.9 mmol/L (3.5-5.1)
[2020-01-15 12:38] LABS: HEMATOCRIT 44.4 % (37.0-47.0); HEMOGLOBIN 14.1 gm/dL (12.0-15.0); MCH 28.1 pg (26.0-34.0); MCHC 31.8 g/dL (28.0-37.0); MCV 88.1 fL (80.0-100.0); RBC 5.03 mil/uL (4.20-5.00); RDW 16.9 % (10.5-14.5); WBC 16.8 thou/uL (4.0-11.0)
--- NOTE | 2020-01-15 12:45 | HC ---
[facility] [place] [address] CONSULTATION Name: JONATHAN MCCULLOUGH Room #: 250-[facility] IN .R.#: [id number] Admission: 01/13/20 Attend Phys: Tc Denney MD Discharge: Date of : 57 Report #: [id number] THIS REPORT FOR: cc: Bello Unger MD, Christopher B. MD Al-Mubaslat, Ahmad MD ~ CC: Gerald Denney DATE OF SERVICE: 01/14/2020 ENDOCRINE CONSULTATION NOTE CONSULTING PHYSICIAN: Dr. Tc Denney. REASON FOR CONSULTATION: DKA, uncontrolled type 1 diabetes mellitus. HISTORY OF PRESENT ILLNESS: This is a 64-year-old female patient whose medical background is significant for type 1 diabetes mellitus diagnosed many years ago. The patient was actually recently hospitalized on the first of this month for DKA and had another DKA episode earlier in October of this year as well. Following her stabilization during her last admission, the patient was released home on a combination of Lantus insulin 12 units daily in addition to Humalog insulin 3-4 units t.i.d. a.c. The patient notes that she has been dealing with intractable issues of nausea and occasional vomiting over the past 2-3 days and has not been able to eat much at all, which prompted her to completely stop her insulin regimen for at least 48 hours. She notes that her blood glucose values have risen progressively during this time and was feeling progressively weak and fatigued to where she presented to the hospital and was found again to be in DKA. The patient was subsequently admitted for further care and monitoring. The patient's background is significant for uncontrolled type 1 diabetes mellitus with multiple admissions for DKA as well as baseline issues with diabetic neuropathy for which she is treated with amitriptyline and gabapentin. The patient has renal insufficiency as well. REVIEW OF SYSTEMS: CONSTITUTIONAL: Fatigue, tiredness, but not fever or chills. No significant body weight changes. HEENT: Negative for sore throat, sinus pain, ear drainage. PULMONARY: No major issues with shortness of breath, cough or hemoptysis. CARDIAC: Negative for chest pain, palpitations, syncope or presyncope. GASTROINTESTINAL: Noted for diffuse abdominal discomfort, multiple episodes of [facility] [address] [place] [address] CONSULTATION Name: JONATHAN MCCULLOUGH Dorene Room #: [address] [place] [address] IN M.R.#: [id number] Admission: 01/13/20 Attend Phys: Tc Denney MD Discharge: Date of : 57 Report #: [id number] nausea and vomiting, but no significant changes in bowel movement frequency. NEUROLOGY: Baseline diabetic neuropathy affecting both lower extremities. No seizure activity. Occasional headaches. PSYCHIATRIC: Baseline issues with bipolar disorder as well as depression, stable on the current medical regimen. MUSCULOSKELETAL: The patient has baseline issues with osteoarthritis, fibromyalgia as well as diffuse muscle and joint aches. She has had a recent major trauma to her right shoulder. Otherwise, review of systems noncontributory other than those mentioned in HPI. PAST MEDICAL HISTORY: 1. Type 1 diabetes mellitus. 2. Multiple episodes of DKA in the past. 3. Diabetic neuropathy. 4. CAD. 5. Bipolar disorder. 6. History of seizure disorder. 7. Fibromyalgia. 8. Pseudoseizures. 9. Osteoporosis. OUTPATIENT MEDICATIONS: 1. Include naproxen p.r.n. 2. Docusate 100 mg b.i.d. 3. MiraLax 17 g daily p.r.n. 4. Zofran 4 mg q. 8 hours p.r.n. 5. Protonix 40 mg daily. 6. Lantus insulin 12 units daily. 7. Gabapentin 600 mg q.i.d. 8. Humalog insulin 3-4 units t.i.d. a.c. 9. Calcium carbonate 600 mg daily. 10. Fosamax 70 mg weekly. 11. Prozac 60 mg daily. 12. Amitriptyline 100 mg daily. ALLERGIES: No known drug allergies. FAMILY HISTORY: Noncontributory. SOCIAL HISTORY: The patient is an everyday smoker about 1 pack per day. She currently lives with her parents. PHYSICAL EXAMINATION: GENERAL: female patient who is not in apparent pain or distress. VITAL SIGNS: Blood pressure is 124/75 mmHg, heart rate is 96 beats per minute, respirations 30 per minute, temperature 36.9 [place] [address] CONSULTATION Name: JONATHAN MCCULLOUGH Dorene Room #: 250-P [facility] IN M.R.#: [id number] Admission: 01/13/20 Attend Phys: Tc Denney MD Discharge: Date of : 57 Report #: [id number] CONSTITUTIONAL: The patient is lying in bed, appears relatively comfortable, not in apparent distress. HEENT: Anicteric sclerae. Intact extraocular motions. NECK: Supple, without JVD. No thyromegaly. CHEST: Noted for moderate air entry with scattered rales. No wheeze or crackles. HEART: Regular rate and rhythm without murmurs or gallops. ABDOMEN: Soft, lax. No guarding. Active bowel sounds. NEUROLOGIC: The patient is awake, alert and oriented to time, place and person. The remainder of her examination is noted for peripheral sensory deficits. PSYCHIATRIC: Pleasant, interactive. Normal mood and affect. LABORATORY DATA: Blood glucose on arrival was 296, was as high as 330, most recently at 158 mg/dL. Sodium 134, potassium 4.3, chloride 104, CO2 14. Anion gap 16, was at 26 on presentation. BUN 12, creatinine 0.8. AST 16, lipase 35, total bilirubin 0.7, calcium 9.2, phosphorus 2.2, magnesium 1.7, alkaline phosphatase 124, ALT 15, total protein 6.8, albumin 3.5, EGFR 72. INR 1.0. White blood count 7.8, hemoglobin 13.9, hematocrit 42.1, platelets 438. Hemoglobin A1c done on 01/01 was 13.4%. ASSESSMENT AND PLAN: 1. Diabetic ketoacidosis. As noted above, the patient presented under clinical and laboratory circumstances indicating diabetic ketoacidosis. Unfortunately, this has occurred multiple times over the past few months due to noncompliance and insulin therapy inconsistency. The patient has been admitted for further care and monitoring and will be managed as per the [facility] IV insulin protocol. Blood glucose monitoring will commence hourly and adjustments will be made as per protocol. The patient seems to have started to significantly reverse the metabolic changes, see that she presented with what I would like to allow her more time to fully stabilize and effectively resolve her issues with diabetic ketoacidosis. 2. Type 1 diabetes mellitus. The patient has a fairly uncontrolled baseline as far as type 1 diabetes mellitus goes. The patient's course has been marked by significant noncompliance issues mounting to complete abandonment of insulin therapy over the past few days. The patient was counseled extensively today about the need to maintain consistent insulin intake including basal insulin intake under conditions of nausea, vomiting and dehydration. The patient will be switched back to subcutaneous insulin therapy once she is stable enough to take off IV insulin and her initial regimen will be determined as per her reported IV insulin needs at that time. 3. Diabetic neuropathy. This is a baseline morbidity for the patient and she is maintained on a combination of agents including amitriptyline and gabapentin. These can be resumed once the patient is clinically stable. [address] [address] CONSULTATION Name: JONATHAN MCCULLOUGH Room #: 250-P [facility] IN .R.#: [id number] Admission: 01/13/20 Attend Phys: Tc Denney MD Discharge: Date of : 57 Report #: [id number] I have reviewed the patient's current and past clinical care notes, laboratory data, and other pertinent clinical information for over 35 minutes in addition to my [id number] time with her. I appreciate this consultation by Dr. Denney. <ELECTRONICALLY SIGNED> By: Gerald Gil MD 01/15/20 1245 1059 1451 Gerald Gil MD /nt
[2020-01-16] VITALS (33 sets, daily range): BP systolic 91–126; BP diastolic 39–104
[2020-01-16 07:28] LABS: MCH 28.4 pg (26.0-34.0); MCHC 32.5 g/dL (28.0-37.0); MCV 87.4 fL (80.0-100.0); RBC 4.92 mil/uL (4.20-5.00); RDW 16.4 % (10.5-14.5); WBC 12.9 thou/uL (4.0-11.0)
[2020-01-16 07:44] LABS: CALCIUM 8.4 mg/dL (8.5-10.1); CREATININE 0.7 mg/dL (0.6-1.0); MAGNESIUM 1.5 mg/dL (1.8-2.4); PHOSPHORUS 2.1 mg/dL (2.5-4.9)
[2020-01-16 20:49] LABS: MAGNESIUM 1.4 mg/dL (1.8-2.4); POTASSIUM 3.3 mmol/L (3.5-5.1)
[2020-01-17] VITALS (12 sets, daily range): BP systolic 88–105; BP diastolic 44–62
[2020-01-17 07:13] LABS: HEMATOCRIT 37.7 % (37.0-47.0); HEMOGLOBIN 12.3 gm/dL (12.0-15.0); MCH 28.2 pg (26.0-34.0); MCHC 32.5 g/dL (28.0-37.0); MCV 86.7 fL (80.0-100.0); RBC 4.35 mil/uL (4.20-5.00)
[2020-01-17 07:38] LABS: CALCIUM 8.3 mg/dL (8.5-10.1); CREATININE 0.6 mg/dL (0.6-1.0); POTASSIUM 3.7 mmol/L (3.5-5.1)
[2020-01-17] MEDS ORDERED: PERCOCET PO (12:19)
== END 2020-01-17 14:55 | disposition home health service (06) | DRG 637 ==
LOC: ER 10:02 → EROBS 12:57 → ICU 12:57 → 4W 01-14 23:29 → ICU 01-15 01:42
PROVIDERS: Emergency Medicine Emergency Medical Services; Hospitalist; Internal Medicine; Nurse Practitioner Family; ADMIT Internal Medicine
DX: E10.10 Type 1 diabetes mellitus with ketoacidosis without coma (principal); J96.01 Acute respiratory failure with hypoxia; F11.20 Opioid dependence, uncomplicated; G93.40 Encephalopathy, unspecified; E10.40 Type 1 diabetes mellitus with diabetic neuropathy, unspecified; I25.10 Atherosclerotic heart disease of native coronary artery without angina pectoris; F31.9 Bipolar disorder, unspecified; G40.409 Other generalized epilepsy and epileptic syndromes, not intractable, without status epilepticus; J44.9 Chronic obstructive pulmonary disease, unspecified; M81.0 Age-related osteoporosis without current pathological fracture; I10 Essential (primary) hypertension; F17.210 Nicotine dependence, cigarettes, uncomplicated; I95.9 Hypotension, unspecified; E83.42 Hypomagnesemia; E83.39 Other disorders of phosphorus metabolism; Z91.19 Patient's noncompliance with other medical treatment and regimen; Z90.710 Acquired absence of both cervix and uterus
CPT/HCPCS: 10040; 10047; 10078; 10204

== ENCOUNTER → 2020-10-09 | Outpatient (CLI) | payer OTHER ==
[~2020-10-09] MED LIST changes: +MS CONTIN 30 MG30 M1 PO
== END ==
LOC: BC 09:02
PROVIDERS: ATTEND Internal Medicine
DX: Z12.31 Encounter for screening mammogram for malignant neoplasm of breast (principal)